=== PATIENT | male | born 1955 | race Caucasian/White ===

== ENCOUNTER → 2016-10-06 | Outpatient (CLI) | payer BC ==
--- NOTE | 2016-10-06 10:31 | US ---
EXAMINATION TYPE: US abdomen complete DATE OF EXAM: 10/06/2016 9:20 AM COMPARISON: NONE CLINICAL HISTORY: Abnormal liver function. EXAM MEASUREMENTS: Liver Length: 17.1 cm Gallbladder Wall: 0.3 cm CBD: 0.5 cm Spleen: 13.4 cm Right Kidney: 11.7 x 5.6 x 5.9 cm Left Kidney: 12.3 x 6.6 x 7.4 cm ANATOMY: TECHNOLOGIST IMPRESSION: 2.9 x 2.9 x 2.2 cm cyst with irregular borders in left lobe of liver; some attenuation indicative of fatty infiltrate Pancreas: Obscured by bowel gas Liver: Increased attenuation Gallbladder: Within normal limits Evidence for sonographic Cadena's sign: No CBD: Within normal limits Spleen: Within normal limits Right Kidney: No hydronephrosis or masses seen Left Kidney: No hydronephrosis or masses seen Upper IVC: Within normal limits Abd Aorta: Within normal limits There is an irregular bordered cyst with good through transmission and posterior wall enhancement wit hin the left lobe liver. Monitoring is recommended. IMPRESSION: 1. Irregular cyst within the liver. Monitoring is recommended. 2. Abdomen ultrasound is otherwise unremarkable.
== END | disposition home or self-care (01) ==
LOC: RADUSWWP 08:43
PROVIDERS: ATTEND Internal Medicine
DX: K76.89 Other specified diseases of liver (principal)
CPT/HCPCS: 76700

== ENCOUNTER → 2017-01-26 | Outpatient (CLI) | payer BC ==
--- NOTE | 2017-01-26 09:01 | US ---
EXAMINATION TYPE: US abdomen limited DATE OF EXAM: 01/26/2017 8:45 AM COMPARISON: US 2017 CLINICAL HISTORY: K76.89 Liver Cysts. EXAM MEASUREMENTS: Liver Length: 11.6 cm Gallbladder Wall: 0.2 cm CBD: 0.4 cm Right Kidney: 11.3 x 6.7 x 5.3 cm Pancreas: limitedly seen due to overlying bowel gas Liver: Cyst seen in left lobe = 1.7 x 1.8 x 2.6cm; heterogeneous appearance Gallbladder: wnl Evidence for sonographic Cadena's sign: No CBD: wnl Right Kidney: wnl IMPRESSION: 1. Probable fatty infiltration. 2. Left lobe hepatic cyst
== END | disposition home or self-care (01) ==
LOC: RADUSWWP 08:15
DX: K76.89 Other specified diseases of liver (principal)
CPT/HCPCS: 76705

== ENCOUNTER → 2017-05-22 | Outpatient (CLI) | payer BC ==
[2017-05-22 12:20] LABS: Bilirubin, Delta 0.2 mg/dL (0.0-0.2); Total Bilirubin 0.4 mg/dL (0.2-1.3); Total Protein 6.1 g/dL (6.3-8.2)
== END | disposition home or self-care (01) ==
LOC: LABWHC1 11:30
DX: R74.8 Abnormal levels of other serum enzymes (principal)
CPT/HCPCS: 36415; 80076

== ENCOUNTER → 2017-08-04 | Outpatient (CLI) | payer BC ==
--- NOTE | 2017-08-04 10:56 | US ---
EXAMINATION TYPE: US liver DATE OF EXAM: 08/04/2017 COMPARISON: Prior ultrasound January 2017. CLINICAL HISTORY: K76.0 Fatty liver. Follow up; hx liver cyst and fatty liver EXAM MEASUREMENTS: Liver Length: 16.7 cm cm Gallbladder Wall: 0.3 cm CHD: 0.5 cm Right Kidney: 10.7 x 5.9 x 6.1 cm Pancreas: Obscured by bowel gas Liver: left septated appearing cyst in left lobe = 2.8 x 2.9 x 1.9 cm. Does not appear echogenic co mpared to right kidney. Gallbladder: wnl Evidence for sonographic Cadena's sign: neg CBD: wnl Right Kidney: wnl Pancreas is suboptimally evaluated on images saved. In the liver there is redemonstration of 2.8 x 1. 9 cm elongated otherwise fairly simple appearing cyst though does have thin septation on image 24, th is is not significantly changed in appearance from prior study. No suspicious nodularity or thickened wall is present. Liver is overall slightly heterogeneously hyperechoic. No worrisome intrahepatic du ctal dilatation is seen. Evaluation for focal masses is noted suboptimal due to the heterogeneity. IMPRESSION: Probable fatty infiltration of liver redemonstrated. There is stable 2.8 cm cyst or cysti c lesion in liver with thin septa identified on current study.
== END | disposition home or self-care (01) ==
LOC: RADUSWWP 10:13
DX: N28.1 Cyst of kidney, acquired (principal)
CPT/HCPCS: 76705

== ENCOUNTER → 2018-06-01 | Outpatient (CLI) | payer BC ==
[2018-06-01 16:52] LABS: Albumin 4.1 g/dL (3.5-5.0); Bilirubin, Delta 0.3 mg/dL (0.0-0.2); Bilirubin,Unconjugated 0.1 mg/dL (0.0-1.1); Total Bilirubin 0.4 mg/dL (0.2-1.3); Total Protein 6.5 g/dL (6.3-8.2)
== END | disposition home or self-care (01) ==
LOC: LABWHC1 16:15
DX: K76.0 Fatty (change of) liver, not elsewhere classified (principal)
CPT/HCPCS: 36415; 80076

== ENCOUNTER → 2018-08-17 | Outpatient (CLI) | payer BC ==
--- NOTE | 2018-08-17 16:39 | US ---
EXAMINATION TYPE: US liver DATE OF EXAM: 08/17/2018 COMPARISON: US 08/04/2017 CLINICAL HISTORY: K76.89 OTHER SPECIFIED DISEASE OF LIVER. EXAM MEASUREMENTS: Liver Length: 16.6 cm Gallbladder Wall: 0.2 cm CBD: 0.5 cm Right Kidney: 10.7 x 5.8 x 5.8 cm Pancreas: Obscured by bowel gas Liver: Heterogeneous, coarse echotexture There is a 2.3 x 3.0 cm cystlike structure within the tasha er. This previously measured 2.8 x 1.9 cm. This has irregular monahan with good through transmission. C omplex cyst should be considered. Follow-up is recommended. Gallbladder: wnl Evidence for sonographic Cadena's sign: No CBD: wnl as visualized, distal portion obscured by bowel gas Right Kidney: No hydronephrosis or masses seen IMPRESSION: 1. Changing Complex hepatic cyst. 2. Hepatic cyst is slightly enlarged from comparison study. Consider additional evaluation with contr ast MRI.
== END | disposition home or self-care (01) ==
LOC: RADUSWWP 09:31
DX: K76.89 Other specified diseases of liver (principal)
CPT/HCPCS: 76705

== ENCOUNTER → 2019-09-12 | Outpatient (CLI) | payer BC ==
[2019-09-12 12:12] LABS: Albumin 3.9 g/dL (3.5-5.0); Calcium 8.8 mg/dL (8.4-10.2); Potassium 4.3 mmol/L (3.5-5.1); Total Bilirubin 0.8 mg/dL (0.2-1.3); Total Protein 6.4 g/dL (6.3-8.2)
[2019-09-12 12:16] LABS: Basophils % (A) 0 %; Eosinophils # (A) 0.1 k/uL (0-0.7); Eosinophils % (A) 1 %; HCT 43.5 % (39.0-53.0); HGB 14.4 gm/dL (13.0-17.5); Lymphocytes # (A) 1.6 k/uL (1.0-4.8); Lymphocytes % (A) 24 %; MCH 28.2 pg (25.0-35.0); MCHC 33.2 g/dL (31.0-37.0); Mean Platelet Volume 8.6; Monocytes # (A) 0.5 k/uL (0-1.0); Monocytes % (A) 8 %; Neutrophils # (A) 4.2 k/uL (1.3-7.7); Neutrophils % (A) 65 %; Platelet Count 228 k/uL (150-450); RBC 5.12 m/uL (4.30-5.90); RDW 12.6 % (11.5-15.5); WBC 6.5 k/uL (3.8-10.6)
--- NOTE | 2019-09-12 13:50 | US ---
EXAMINATION TYPE: US liver DATE OF EXAM: 09/12/2019 COMPARISON: 08/17/2018 CLINICAL HISTORY: 64-year-old male K76.89 DISEASE OF LIVER. Follow up liver cyst TECHNIQUE: Multiple sonographic images of the right upper quadrant are obtained. FINDINGS: EXAM MEASUREMENTS: Liver Length: 17.2 cm Gallbladder Wall: 0.2 cm CBD: 0.4 cm Right Kidney: 10.2 x 5.7 x 5.5 cm Pancreas: visualized portions wnl, limited by overlying midline bowel gas Liver: Slightly heterogeneous echotexture, 2.1 x 2.9 x 3.2cm cyst left lobe (previously 3.0 x 2.3 cm ). As seen previously, there is wall irregularity. Gallbladder: 0.4cm echogenic focus, small calculus versus gallbladder wall polyp. Evidence for sonographic Cadena's sign: no CBD: visualized portions wnl, limited by overlying bowel gas Right Kidney: wnl IMPRESSION: 1. 3.2 x 2.1 cm slightly irregular cyst within the left liver lobe (versus 3.0 x 2.3 cm on 08/17/2018 and 2.9 x 1.9 cm on 08/04/2017). Overall indolent behavior suggests a benign etiology. 2. A 4 mm gallbladder wall polyp versus small gallstone.
== END | disposition home or self-care (01) ==
LOC: RADUSWWP 10:54
PROVIDERS: ATTEND Internal Medicine Gastroenterology
DX: K76.89 Other specified diseases of liver (principal); K76.0 Fatty (change of) liver, not elsewhere classified
CPT/HCPCS: 76705; 80053; 85025

== ENCOUNTER → 2021-10-25 | Outpatient (CLI) | payer MEDICARE ==
--- NOTE | 2021-10-25 13:27 | US ---
EXAMINATION TYPE: US carotid duplex BILAT DATE OF EXAM: 10/25/2021 COMPARISON: NONE CLINICAL HISTORY: [id number]. EXAM MEASUREMENTS: RIGHT: Peak Systolic Velocity (PSV) cm/sec ----- Right CCA: 57.2 ----- Right ICA: 73.8 ----- Right ECA: 69.4 ICA/CCA ratio: 1.3 RIGHT: End Diastole cm/sec ----- Right CCA: 16.2 ----- Right ICA: 34.5 ----- Right ECA: 14.5 LEFT: Peak Systolic Velocity (PSV) cm/sec ----- Left CCA: 64.2 ----- Left ICA: 86.4 ----- Left ECA: 65.2 ICA/CCA ratio: 1.3 LEFT: End Diastole cm/sec ----- Left CCA: 20.6 ----- Left ICA: 42.0 ----- Left ECA: 16.8 VERTEBRALS (direction of flow): Right Vertebral: Antegrade Left Vertebral: Antegrade Rhythm: Normal Minimal atherosclerotic changes with no significant velocity increases. IMPRESSION: No evidence for hemodynamically significant stenosis. Criteria for Assigning % of Stenosis / Diameter reduction (Estimation based on the indirect measurements of the internal carotid artery velocities (ICA PSV). 1. Normal (no stenosis)=ICA PSV < 125 cm/s: ratio < 2.0: ICA EDV<40 cm/s. 2. Less than 50% stenosis=ICA PSV < 125 cm/s: ratio < 2.0: ICA EDV<40 cm/s. 3. 50 to 69% stenosis=ICA PSV of 125 to 230 cm/s: ration 2.0 ? 4.0: ICA EDV 40-100 cm/s. 4. Greater than 70% stenosis to near occlusion= ICA PSV > 230 cm/s: ratio > 4.0: ICA EDV > 100 cm/s. 5. Near occlusion= ICA PSV velocities may be low or undetectable: variable ratio and ICA EDV. 6. Total occlusion=unable to detect flow.
--- NOTE | 2021-10-25 15:39 | ECHOF ---
Referral Reason:I10 hypertention MEASUREMENTS -------- HEIGHT: 180.3 cm WEIGHT: 102.1 kg BP: IVSd: 1.3 cm (0.6 - 1.1) LVIDd: 4.1 cm (3.9 - 5.3) LVPWd: 1.4 cm (0.6 - 1.1) IVSs: 1.9 cm LVIDs: 2.6 cm LVPWs: 1.9 cm LAESV Index (A-L): 16.02 ml/m Ao Diam: 4.2 cm (2.0 - 3.7) AV Cusp: 2.6 cm (1.5 - 2.6) LA Diam: 3.3 cm (2.7 - 3.8) MV EXCURSION: 18.742 mm (> 18.000) MV EF SLOPE: 91 mm/s (70 - 150) EPSS: 3.0 cm MV E Luis: 0.71 m/s MV DecT: 178 ms MV A Luis: 0.86 m/s MV E/A Ratio: 0.83 RAP: 5.00 mmHg RVSP: 22.84 mmHg FINDINGS -------- This was a technically good study. The left ventricular size is normal. There is mild concentric left ventricular hypertrophy. Overa ll left ventricular systolic function is normal with, an EF between 55 - 60 %. The diastolic fillin g pattern is normal for the age of the patient {E/E'}. The right ventricle is normal in size. The left atrial size is normal. The right atrial size is normal. The aortic valve is trileaflet and appears structurally normal. The mitral valve is normal. There is trace mitral regurgitation. The tricuspid valve appears structurally normal. Trace tricuspid regurgitation present. Right ange tricular systolic pressure is normal at < 35 mmHg. There is no pulmonic regurgitation present. The aortic root size is normal. Normal inferior vena cava with normal inspiratory collapse consistent with estimated right atrial pre ssure of 5 mmHg. There is no pericardial effusion. CONCLUSIONS -------- 1. The left ventricular size is normal. 2. There is mild concentric left ventricular hypertrophy. 3. Overall left ventricular systolic function is normal with, an EF between 55 - 60 %. 4. The diastolic filling pattern is normal for the age of the patient {E/E'} 5. There is trace mitral regurgitation. 6. Trace tricuspid regurgitation present. 7. There is no pericardial effusion. LOG HAUL OPERATOR: Alyssa Horne RDCS
--- NOTE | 2021-10-26 06:35 | CT ---
EXAMINATION TYPE: CT heart w calcium score DATE OF EXAM: 10/25/2021 COMPARISON: Chest x-ray September 02, 2017 HISTORY: Screening for cardiovascular disorder. 213.9 CT DLP: 118.7 mGycm Automated exposure control for dose reduction was used. CT CALCIUM SCORING Coronary calcium is a marker for plaque (fatty deposits) in a blood vessel or atherosclerosis (harden ing of the arteries). The presence and amount of calcium detected in a coronary artery by the CT sca n, indicates the presence and amount of atherosclerotic plaque. These calcium deposits appear years before the development of heart disease symptoms such as chest pain and shortness of breath. A calcium score is computed for each of the coronary arteries based upon the volume and density of th e calcium deposits. This can be referred to as your calcified plaque burden. It does not correspond directly to the percentage of narrowing in the artery but does correlate with the severity of the un derlying coronary atherosclerosis. PROCEDURE TECHNIQUE - Prospective Gating was used. Slice thickness: 3mm. Density threshold (HU): 130, Pixel threshold: 3, Algorithm: discrete. RESULTS Region: LM Calcium Score ([place]): 0 Region: RCA Calcium Score ([place]): 0 Region: LAD Calcium Score ([place]): 0 Region: CX Calcium Score ([place]): 0 Region: PDA Calcium Score ([place]): 0 TOTAL CALCIUM SCORE: 0 Persistent elevated left hemidiaphragm. Mild anterior bibasilar linear scarring and/or atelectasis is present. There is mild underlying emphysematous change. Left hepatic lobe has 2.7 cm low dense lesio n redemonstrated consistent with benign thin-walled cyst correlating with 2019 liver ultrasound. IMPRESSION: Calcium Score: 0 Implication: No identifiable plaque. Risk of Coronary Artery Disease: Very low, generally less than 5%. CALCIUM SCORE IMPLICATION RISK OF C ORONARY ARTERY DISEASE 0 No identifiable plaque Very low, generally less than 5% 1-10 Minimal identifiable plaque Very unlikely, less than 10% 11-100 Definite, at least mild atherosclerotic plaque Mild or m inimal coronary narrowings likely 101-400 Definite, at least moderate atherosclerotic plaque Mild coronary ar ursula disease highly likely, significant narrowing possible 401 or Higher Extensive atherosclerotic plaque High lik elihood of at least one significant coronary narrowing
== END | disposition home or self-care (01) ==
LOC: RADUSWWP 12:47
PROVIDERS: ATTEND Internal Medicine
DX: I65.23 Occlusion and stenosis of bilateral carotid arteries (principal); I10 Essential (primary) hypertension; Z82.49 Family history of ischemic heart disease and other diseases of the circulatory system
CPT/HCPCS: 75571; 93306; 93880

== ENCOUNTER → 2021-11-07 | Outpatient (CLI) | payer MEDICARE ==
[2021-11-07 15:05] LABS: African American GFR (CKD) >90 (>60 ml/min/1.73 sqM); Blood Urea Nitrogen 21 mg/dL (9-20); Non-African American GFR(CKD) 79 (>60 ml/min/1.73 sqM)
--- NOTE | 2021-11-08 10:36 | CT ---
EXAMINATION TYPE: CT urogram wo/w con DATE OF EXAM: 11/07/2021 INDICATION: Hematuria CT DLP: 3876 mGy.cm Automated Exposure Control for Dose Reduction was Utilized. TECHNIQUE AND CONTRAST: Multiphasic multiplanar CT scan of the abdomen and pelvis is performed before and after IV contrast a dministration with delayed images as per CT urogram protocol, patient injected with 100 mL of Isovue 300. 3-D reconstructed images were performed and reviewed. COMPARISON: No previous CT scan is available for comparison. FINDINGS: Enlarged heterogeneous prostate measuring 5.4 x 5.3 x 5.9 cm. It demonstrates calcifications within, with surrounding fat stranding. Please correlate with PSA level. It indents and elevates the urinary bladder base. Slightly larger right seminal vesicles. No definite radiodense urinary calculi. No hydr oureter or hydronephrosis. Mild bilateral perinephric fat stranding, nonspecific. Unremarkable kidney s otherwise with no definite renal lesion. Minimal wall thickening of the most inferior aspects of the ureters, possibly reactive to the enlarge ment prostate. Otherwise unremarkable ureters with no definite filling defects within the renal colle cting system or the opacified ureters. Mild wall thickening of the urinary bladder yet it is not comp letely distended. No gross urinary bladder lesion. Scattered hepatic cysts measuring up to 3 cm in the left hepatic lobe, otherwise unremarkable liver. Unremarkable gallbladder, spleen, pancreas and adrenals. Minimal scattered arterial atherosclerotic c alcifications. Unremarkable stomach and duodenum. Abnormal wall thickening of the terminal ileum to t he ileocecal junction with fatty infiltration, possibly related to chronic inflammatory changes howev er underlying lesion cannot be excluded. Scattered uncomplicated colonic diverticulosis. 9 mm appendicolith within the appendix without eviden ce of acute appendicitis. Bilateral fat-containing inguinal hernias. Subcentimeter bilateral inguinal , external iliac, mesenteric and retroperitoneal lymph nodes, nonspecific. No pathologically enlarged lymph nodes or sizable ascites. Bilateral basal subsegmental pulmonary atelectasis. 12 mm right ante rior basal pleural calcification. Bilateral L4-5 and L5-S1 facet osteoarthropathy. No aggressive bone lesion. IMPRESSION: Enlarged heterogeneous prostate with surrounding fat stranding as described above. Please correlate w ith PSA level. Slightly thickened urinary bladder wall yet not completely distended. Minimal thickeni ng of the most inferior aspects of the ureters, possibly reactive to the enlarged prostate. Otherwise no definite renal, ureteric or urinary bladder lesion identified. Other incidental findings as detai led above.
== END | disposition home or self-care (01) ==
LOC: RADCTMAIN 14:18
PROVIDERS: ATTEND Internal Medicine
DX: R31.9 Hematuria, unspecified (principal)
CPT/HCPCS: 82565; 84520; 74178; 36415; 74400; Q9967

== ENCOUNTER → 2023-11-06 | Outpatient (CLI) | payer MEDICARE ==
[2023-11-06 09:05] LABS: African American GFR (CKD) 79 (>60 ml/min/1.73 sqM); Blood Urea Nitrogen 21 mg/dL (9-20); Non-African American GFR(CKD) 69 (>60 ml/min/1.73 sqM)
--- NOTE | 2023-11-06 12:17 | CT ---
EXAMINATION: CT UROGRAM ABDOMEN AND PELVIS WITHOUT AND WITH IV CONTRAST DATE OF EXAMINATION: 11/06/2023. COMPARISON: 11/07/2021. INDICATION: Enlarged prostate for 3 years. PROCEDURE: Axial CT of the abdomen and pelvis was performed without and with contrast and sagittal and coronal reformatted images were performed. CT dose lowering techniques were used, to include: aut omated exposure control, adjustment for patient size, and/or use of iterative reconstruction. Maximum intensity projection reformats were also performed. 100 mL of Isovue-300 was given intravenously. FINDINGS: LOWER CHEST : The visualized lung bases are clear. There are no pleural or pericardial effusions. ABDOMEN: Liver and Biliary system: There is a 2.8 cm cyst within the left lobe of liver. No suspicious liver lesions are otherwise seen. Adrenal glands: Normal. Kidneys and ureters: There is a 2 mm nonobstructing stone in the interpolar region of the left kidney . The kidneys and ureters otherwise appear unremarkable. Spleen: Normal. Pancreas: Normal. Gallbladder: Normal. Lymph nodes, Peritoneum and mesentery: There is no mesenteric or retroperitoneal lymphadenopathy. Gastrointestinal tract: There are no dilated loops of bowel or free intraperitoneal air. The appe ndix is normal. Aorta/IVC: No aortic aneurysm. IVC normal. Abdominal wall: Normal. PELVIS: Fluid: There is no free fluid in the pelvis. Lymph Nodes: There is no pelvic or inguinal lymphadenopathy.. Urinary bladder: The prostate is significantly enlarged indenting the base of the bladder. No suspic ious bladder lesions are otherwise seen. BONES: There are no osseous destructive lesions.. ADDITIONAL SIGNIFICANT FINDINGS: None. IMPRESSION: 1. Small nonobstructing left renal stone. 2. No suspicious renal, urinary tract or bladder lesions identified. 3. Markedly enlarged prostate indenting the base of the bladder. 4. No acute findings.
== END | disposition home or self-care (01) ==
LOC: RADCTMAIN 08:27
PROVIDERS: ATTEND Internal Medicine
DX: N32.89 Other specified disorders of bladder (principal); N20.0 Calculus of kidney; N40.0 Benign prostatic hyperplasia without lower urinary tract symptoms
CPT/HCPCS: 82565; 84520; 74178; 74400; Q9967

== ENCOUNTER 2024-12-16 07:18 | Inpatient (IN) | payer MEDICARE ==
[2024-12-16 07:46] LABS: Basophils % (A) 0 %; Eosinophils # (A) 0.2 k/uL (0-0.7); Eosinophils % (A) 1 %; HCT 43.9 % (39.0-53.0); HGB 14.4 gm/dL (13.0-17.5); Lymphocytes # (A) 1.3 k/uL (1.0-4.8); Lymphocytes % (A) 7 %; MCH 28.4 pg (25.0-35.0); MCHC 32.9 g/dL (31.0-37.0); MCV 86.3 fL (80.0-100.0); Mean Platelet Volume 8.4; Monocytes # (A) 1.1 k/uL (0-1.0); Monocytes % (A) 6 %; Neutrophils # (A) 15.2 k/uL (1.3-7.7); Neutrophils % (A) 84 %; Platelet Count 234 k/uL (150-450); RBC 5.09 m/uL (4.30-5.90); RDW 12.4 % (11.5-15.5)
[2024-12-16 07:49] LABS: Amorphous Sediment,Urine Occasional /hpf; Appearance,Urine Cloudy (Clear); Bilirubin,Urine Negative (Negative); Blood,Urine Negative (Negative); Color,Urine Light Yellow; Glucose,Urine (UA) Negative (Negative); Ketones,Urine Negative (Negative); Leukocyte Esterase,Urine Negative (Negative); Mucus,Urine Rare /hpf; Nitrite,Urine Negative (Negative); PH, Urine 7.5 (5.0-8.0); Protein,Urine Trace (Negative); RBC,Urine 3 /hpf (0-5); Urobilinogen,Urine <2.0 mg/dL (<2.0); WBC,Urine <1 /hpf (0-5)
[2024-12-16 08:02] LABS: ALT 19 U/L (4-49); AST 26 U/L (17-59); African American GFR (CKD) 86 (>60 ml/min/1.73 sqM); Albumin 4.2 g/dL (3.5-5.0); Alkaline Phosphatase 79 U/L (38-126); Amylase 55 U/L (30-110); Anion Gap 9 mmol/L; Blood Urea Nitrogen 22 mg/dL (9-20); Calcium 8.9 mg/dL (8.4-10.2); Carbon Dioxide 27 mmol/L (22-30); Chloride 102 mmol/L (98-107); Glucose 122 mg/dL (74-99); Lipase 62 U/L (23-300); Non-African American GFR(CKD) 74 (>60 ml/min/1.73 sqM); Potassium 4.2 mmol/L (3.5-5.1); Sodium 138 mmol/L (137-145); Total Protein 6.7 g/dL (6.3-8.2)
--- NOTE | 2024-12-16 09:24 | ED ---
Abdominal Pain HPI - General Chief Complaint: Abdominal Pain Stated Complaint: right lower abdominal pain Time Seen by Provider: 12/16/24 09:23 Source: patient, RN notes reviewed Mode of arrival: ambulatory Limitations: no limitations - History of Present Illness Initial Comments: 69-year-old male with a PMHX of HTN and HLD presented the ER for evaluation of abdominal pain. He states for the past couple of days he has been having in achy sore right lower quadrant abdominal pain. He states pain is exacerbated by palpation and getting up out of chair. He does report he did not have a bowel movement since Thursday but states last night he took 2 Dulcolax tablets and had a bowel movement prior to rooming the emergency department. He states it was formed stool with no bright red blood or melena. He denies any nausea or vomiting. He does report chills last night with no reported fevers. He has not taken anything for pain at this time. Currently rating his pain a 6 out of 10. No history of ulcerative colitis, Crohn's disease or previous bowel surgeries. Denies any urinary complaints, chest pain, shortness of breath, dizziness, l ightheadedness or other complaints. - Related Data Home Medications Medication Instructions Recorded Confirmed Ashwagandha Root Extract 300 mg PO DAILY 12/16/24 12/16/24 [Ashwagandha] Atorvastatin [Lipitor] 20 mg PO DAILY 12/16/24 12/16/24 Cholecalciferol (Vitamin D3) 50 mcg PO DAILY 12/16/24 12/16/24 [Vitamin D3 (50 Mcg = 2000 Iu)] Losartan [Cozaar] 50 mg PO DAILY 12/16/24 12/16/24 Magnesium 250 mg PO DAILY 12/16/24 12/16/24 [place]-3/Dha/Epa/Fish Oil [Fish Oil 1 cap PO DAILY 12/16/24 12/16/24 1,000 mg Softgel] Tamsulosin [Flomax] 0.4 mg PO DAILY 12/16/24 12/16/24 Ubidecarenone [Coenzyme Q10] 100 mg PO DAILY 12/16/24 12/16/24 Vit C/E/Zn/Coppr/Lutein/Zeaxan 1 cap PO DAILY 12/16/24 12/16/24 [Preservision Areds 2 Softgel] Allergies Allergy/AdvReac Type Severity Reaction Status Date / Time No Known Allergies Allergy Verified 12/16/24 11:23 Review of Systems ROS Statement: Those systems with pertinent positive or pertinent negative responses have been documented in the HPI. ROS Other: All systems not noted in ROS Statement are negative. Past Medical History Past Medical History: Hyperlipidemia, Hypertension History of Any Multi-Drug Resistant Organisms: None Reported Past Surgical History: No Surgical Hx Reported Past Psychological History: No Psychological Hx Reported Smoking Status: Never smoker Past Alcohol Use History: Rare Past Drug Use History: Marijuana General Exam Limitations: no limitations General appearance: alert, in no apparent distress Respiratory exam: Present: normal lung sounds bilaterally. Absent: respiratory distress, wheezes, rales, rhonchi, stridor Cardiovascular Exam: Present: regular rate, normal rhythm, normal heart sounds. Absent: systolic murmur, diastolic murmur, rubs, gallop, clicks GI/Abdominal exam: Present: soft, tenderness (RLQ), normal bowel sounds Neurological exam: Present: alert, oriented X3, CN II-XII intact Skin exam: Present: warm, dry, intact, normal color. Absent: rash Course Vital Signs 12/16/24 12/16/24 07:23 10:27 Temperature 97.9 F Pulse Rate 96 87 Respiratory 20 18 Rate Blood Pressure 147/95 149/92 O2 Sat by Pulse 96 98 Oximetry - Reevaluation(s) Reevaluation #1: 12/16/24 11:[address] Rogers, regional agronomist general surgery for admission. Medical Decision Making - Medical Decision Making Was pt. sent in by a medical professional or institution (, PA, DESK EDITOR, urgent care, hospital, or skilled nursing...) When possible be specific @ -No Did you speak to anyone other than the patient for history (EMS, parent, family, police, friend...)? What history was obtained from this source @ -No Did you review nursing and triage notes (agree or disagree)? Why? @ -I reviewed and agree with nursing and triage notes Were old charts reviewed (outside hosp., previous admission, EMS record, old EKG, old radiological studies, urgent care reports/EKG's, skilled nursing records)? Report findings @ -No old charts were reviewed Differential Diagnosis (chest pain, altered mental status, abdominal pain women, abdominal pain men, vaginal bleeding, weakness, fever, dyspnea, syncope, headac he, dizziness, GI bleed, back pain, seizure, CVA, palpatations, mental health, musculoskeletal)? @ -Differential Abdominal Pain Men: Appendicitis, cholecystitis, diverticulosis, ischemic bowel, pancreatitis, hepatitis, UTI, gastroenteritis, AAA, incarcerated hernia, bowel obstruction, constipation, inflammatory bowel, hepatitis, peptic ulcer disease, splenic infarction, perforated viscus, testic ular torsion, this is not meant to be an all-inclusive list EKG interpreted by me (3pts min.). @ -None done X-rays interpreted by me (1pt min.). @ -None done CT interpreted by me (1pt min.). @ -CT abdomen pelvis showing an uncomplicated acute appendicitis with severe surrounding inflammatory changes. No free air. Stable 2.8 cm thin-walled cyst of the left hepatic lobe. U/S interpreted by me (1pt. min.). @ -None done What testing was considered but not performed or refused? (CT, X-rays, U/S, labs)? Why? @ -None What meds were considered but not given or refused? Why? @ -None Did you discuss the management of the patient with other professionals (professionals i.e. , PA, DESK EDITOR, lab, RT, psych nurse, elementary school social worker, announcer, teacher, combat systems officer, case finishing machine adjuster)? Give summary @ -Yes, case discussed with on-call general surgery, Dr. Rogers, who accepts admission. He will take patient to OR. Was smoking cessation discussed for >3mins.? @ -No Was critical care preformed (if so, how long)? @ -No Were there social determinants of health that impacted care today? How? (Homelessness, low income, unemployed, alcoholism, drug addiction, transportation, low edu. Level, literacy, decrease access to med. care, [facility], rehab)? @ -No Was there de-escalation of care discussed even if they declined (Discuss DNR or withdrawal of care, Hospice)? DNR status @ -No What co-morbidities impacted this encounter? (DM, HTN, Smoking, COPD, CAD, Cancer, CVA, ARF, Chemo, Hep., AIDS, mental health diagnosis, sleep apnea, morbid obesity)? @ -Hypertension, hyperlipidemia, BPH Was patient admitted / discharged? Hospital course, mention meds given and route, prescriptions, significant lab abnormalities, going to OR and other pertinent info. @ -Admitted. 69-year-old male presented to ER for evaluation of right lower quadrant abdominal pain. Upon rooming, history and physical exam completed. Vitals within acceptable limits. There is focal exquisite tenderness to the right lower quadrant upon palpation. Normal bowel sounds without rebound or guarding. Laboratory studies showed a leukocytosis of 18.0 with a left shift. Lactic 1.3. Urinalysis no concern of infection. CT abdomen pelvis showing acute uncomplicated appendicitis. Case was discussed with on-call general surgery, Dr. Rogers, for admission. Patient received symptomatic control with IV fluids and Toradol. Patient started on IV Zosyn given leukocytosis, blood cultures obtained. NPO diet. Patient admitted in stable condition for further treatment. Patient agreeable. Case discussed with ED attending, Dr. Rondon. Undiagnosed new problem with uncertain prognosis? @ -No Drug Therapy requiring intensive monitoring for toxicity (Heparin, Nitro, Insulin, Cardizem)? @ -No Were any procedures done? @ -No Diagnosis/symptom? @ -Appendicitis Acute, or Chronic, or Acute on Chronic? @ -Acute Uncomplicated (without systemic symptoms) or Complicated (systemic symptoms)? @ -Complicated Side effects of treatment? @ -No Exacerbation, Progression, or Severe Exacerbation? @ -No Poses a threat to life or bodily function? How? (Chest pain, USA, PA, pneumonia, PE, COPD, DKA, ARF, appy, cholecystitis, CVA, Diverticulitis, Homicidal, Suicidal, threat to staff... and all critical care pts) @ -Yes, appendicitis can lead to sepsis and/or bowel perforation. - Lab Data Result diagrams: 12/16/24 07:40 12/16/24 07:40 Lab Results 12/16/24 12/16/24 12/16/24 Range/Units 07:31 07:40 07:40 WBC 18.0 H (3.8-10.6) k/uL RBC 5.09 (4.30-5.90) m/uL Hgb 14.4 (13.0-17.5) gm/dL Hct 43.9 (39.0-53.0) % MCV 86.3 (80.0-100.0) fL MCH 28.4 (25.0-35.0) pg MCHC 32.9 (31.0-37.0) g/dL RDW 12.4 (11.5-15.5) % Plt Count 234 (150-450) k/uL MPV 8.4 Neutrophils % 84 % Lymphocytes % 7 % Monocytes % 6 % Eosinophils % 1 % Basophils % 0 % Neutrophils # 15.2 H (1.3-7.7) k/uL Lymphocytes # 1.3 (1.0-4.8) k/uL Monocytes # 1.1 H (0-1.0) k/uL Eosinophils # 0.2 (0-0.7) k/uL Basophils # 0.0 (0-0.2) k/uL Sodium (137-145) mmol/L Potassium (3.5-5.1) mmol/L Chloride (98-107) mmol/L Carbon Dioxide (22-30) mmol/L Anion Gap mmol/L BUN (9-20) mg/dL Creatinine (0.66-1.25) mg/dL Est GFR (CKD-EPI)AfAm (>60 ml/min/1.73 sqM) Est GFR (CKD-EPI)NonAf (>60 ml/min/1.73 sqM) Glucose (74-99) mg/dL Plasma Lactic Acid Sherif 1.3 (0.7-2.0) mmol/L Calcium (8.4-10.2) mg/dL Total Bilirubin (0.2-1.3) mg/dL AST (17-59) U/L ALT (4-49) U/L Alkaline Phosphatase (38-126) U/L Total Protein (6.3-8.2) g/dL Albumin (3.5-5.0) g/dL Amylase (30-110) U/L Lipase (23-300) U/L Urine Color Light Yellow Urine Appearance Cloudy (Clear) Urine pH 7.5 (5.0-8.0) Ur Specific Rev[place] 1.020 (1.001-1.035) Urine Protein Trace H (Negative) Urine Glucose (UA) Negative (Negative) Urine Ketones Negative (Negative) Urine Blood Negative (Negative) Urine Nitrite Negative (Negative) Urine Bilirubin Negative (Negative) Urine Urobilinogen <2.0 (<2.0) mg/dL Ur Leukocyte Esterase Negative (Negative) Urine RBC 3 (0-5) /hpf Urine WBC <1 (0-5) /hpf Amorphous Sediment Occasional H (None) /hpf Urine Mucus Rare H (None) /hpf 12/16/24 Range/Units 07:40 WBC (3.8-10.6) k/uL RBC (4.30-5.90) m/uL Hgb (13.0-17.5) gm/dL Hct (39.0-53.0) % MCV (80.0-100.0) fL MCH (25.0-35.0) pg MCHC (31.0-37.0) g/dL RDW (11.5-15.5) % Plt Count (150-450) k/uL MPV Neutrophils % % Lymphocytes % % Monocytes % % Eosinophils % % Basophils % % Neutrophils # (1.3-7.7) k/uL Lymphocytes # (1.0-4.8) k/uL Monocytes # (0-1.0) k/uL Eosinophils # (0-0.7) k/uL Basophils # (0-0.2) k/uL Sodium 138 (137-145) mmol/L Potassium 4.2 (3.5-5.1) mmol/L Chloride 102 (98-107) mmol/L Carbon Dioxide 27 (22-30) mmol/L Anion Gap 9 mmol/L BUN 22 H (9-20) mg/dL Creatinine 1.03 (0.66-1.25) mg/dL Est GFR (CKD-EPI)AfAm 86 (>60 ml/min/1.73 sqM) Est GFR (CKD-EPI)NonAf 74 (>60 ml/min/1.73 sqM) Glucose 122 H (74-99) mg/dL Plasma Lactic Acid Sherif (0.7-2.0) mmol/L Calcium 8.9 (8.4-10.2) mg/dL Total Bilirubin 1.0 (0.2-1.3) mg/dL AST 26 (17-59) U/L ALT 19 (4-49) U/L Alkaline Phosphatase 79 (38-126) U/L Total Protein 6.7 (6.3-8.2) g/dL Albumin 4.2 (3.5-5.0) g/dL Amylase 55 (30-110) U/L Lipase 62 (23-300) U/L Urine Color Urine Appearance (Clear) Urine pH (5.0-8.0) Ur Specific [place] (1.001-1.035) Urine Protein (Negative) Urine Glucose (UA) (Negative) Urine Ketones (Negative) Urine Blood (Negative) Urine Nitrite (Negative) Urine Bilirubin (Negative) Urine Urobilinogen (<2.0) mg/dL Ur Leukocyte Esterase (Negative) Urine RBC (0-5) /hpf Urine WBC (0-5) /hpf Amorphous Sediment (None) /hpf Urine Mucus (None) /hpf - Radiology Data Radiology results: report reviewed, image reviewed Disposition Clinical Impression: Acute appendicitis Disposition: ADMITTED IP TO THIS [facility] Condition: Stable Referrals: Augustin Sandoval MD [Primary Care Provider] - 1-2 days Time of Disposition: 11:06
[2024-12-16] MEDS: SODIUM CHLORIDE 0.9% 1,000 ML IV ONE (09:38)
[2024-12-16] MEDS: KETOROLAC 15 MG/ML 1 ML VIAL IVP STA (09:54)
--- NOTE | 2024-12-16 10:42 | CT ---
EXAMINATION TYPE: CT abdomen pelvis w con DATE OF EXAM: 12/16/2024 COMPARISON: CT urogram November 06, 2023 CLINICAL INDICATION: Male, 69 years old with history of RLQ abd pain, RLQ pain, TECHNIQUE: CT scan of the abdomen and pelvis is performed with IV Contrast, patient injected with 100 mL of Isov ue 300., (none if empty) Oral contrast used: without Oral Contrast (none if empty) CT DLP: 1570.5 mGycm, Automated exposure control for dose reduction was used. FINDINGS: LUNG BASES: Mild bibasilar linear scarring and/or atelectasis. LIVER/GB: There is stable 2.8 cm thin-walled cyst in the left hepatic lobe and nearby subcentimeter h ypodense lesion that is too small to further characterize. PANCREAS: No significant abnormality is seen. SPLEEN: No significant abnormality is seen. ADRENALS: No significant abnormality is seen. KIDNEYS: No significant abnormality is seen. BOWEL: Appendicolith in the appendix is redemonstrated near the base. There is now new dilatation of the appendix up to 1.5 cm with significant surrounding ill-defined fluid and fat stranding. No defini tive well-formed fluid collection or abscess. No free air. PROSTATE/SEMINAL VESICLES: Enlarged prostate consistent with BPH is redemonstrated. LYMPH NODES: No greater than 1cm abdominal or pelvic lymph nodes are appreciated. OSSEOUS STRUCTURES: No significant abnormality is seen. OTHER: No significant additional abnormality is seen. IMPRESSION: CT findings consistent with uncomplicated acute appendicitis with severe surrounding infl ammatory change noted. Critical results communicated to ordering emergency room physician psychologist research assistant by telephone at time of dictation. [facility], , 12/16/2024 10:40 AM
[2024-12-16] MEDS: PIPERACILLIN-TAZOBACTAM 3.375 GM in SODIUM CHLORIDE 0.9% 100 ML IVPB STA (11:29)
[2024-12-16] MEDS ORDERED: NALOXONE 0.4 MG/ML 1 ML VIAL IV PRN (11:32)
[2024-12-16] MEDS ORDERED: HYDROmorphone 1 MG/ML 1 ML SYRINGE IVP PRN (11:32)
[2024-12-16] MEDS: IV FLUID CONTINUATION 1,000 ML IV ONE (12:12)
[2024-12-16] MEDS: ONDANSETRON 4 MG/2 ML VIAL IVP PRN (12:23)
[2024-12-16] MEDS: ACETAMINOPHEN TAB 500 MG TAB PO STA (12:24)
[2024-12-16] MEDS: TAMSULOSIN 0.4 MG CAP.ER.24H PO STA (12:24)
[2024-12-16] MEDS: HEPARIN SODIUM,PORCINE 5,000 UNIT/ML 1 ML VIAL SQ STA (12:29)
[2024-12-16] MEDS ORDERED: SUCCINYLCHOLINE CHLORIDE 200 MG/10 ML VIAL IV ONE (12:41)
[2024-12-16] MEDS ORDERED: PHENYLEPHRINE 10 MG/ML VIAL ONE (12:41)
[2024-12-16] MEDS ORDERED: MIDAZOLAM 2 MG/2 ML VIAL ONE (12:41)
[2024-12-16] MEDS ORDERED: LIDOCAINE 1% INJ 10MG/ML (20 ML MDV) ONE (12:41)
[2024-12-16] MEDS ORDERED: NEOSTIGMINE 1 MG/ML 10 ML VIAL ONE (12:41)
[2024-12-16] MEDS ORDERED: ROCURONIUM 10 MG/ML (5 ML VIAL) IV ONE (12:41)
[2024-12-16] MEDS ORDERED: PROPOFOL 10 MG/ML 20 ML VIAL IV ONE (12:41)
[2024-12-16] MEDS ORDERED: fentaNYL (PF) 50 MCG/ML 2 ML AMP ONE (12:41)
[2024-12-16] MEDS ORDERED: GLYCOPYRROLATE 0.2 MG/ML 2 ML VIAL ONE (12:41)
--- NOTE | 2024-12-16 12:46 | P.GSHP ---
History of Present Illness H&P Date: 12/16/24 Chief Complaint: Acute appendicitis 69-year-old male presents with 2 to 3-day history of right lower quadrant abdominal pain. Pain became more progressive. Patient was having some constipation and kept thinking once he had a bowel movement that his pain would go away. Unfortunate last night the pain was unbearable and he came to the hospital this morning for that reason. Denies fevers. Some nausea. Appetite is diminished. No urinary complaints. White blood cell count 18. No history of similar events. CAT scan was obtained showing acute appendicitis with appen dicolith. Degree of inflammatory changes fairly impressive with likely some fluid around the appendix suggesting rupture is possible. Pain maintained on the right-hand side. - Review of Systems Comment: The patient denies any acute changes in vision or hearing, no dysphagia or odynophagia, no chest pain or shortness of breath, no dysuria or hematuria, no headache, no runny nose, no rectal bleeding or melena, no unexplained weight loss Past Medical History Past Medical History: Hyperlipidemia, Hypertension History of Any Multi-Drug Resistant Organisms: None Reported Past Surgical History: No Surgical Hx Reported Past Psychological History: No Psychological Hx Reported Smoking Status: Never smoker Past Alcohol Use History: Rare Past Drug Use History: Marijuana Medications and Allergies Home Medications Medication Instructions Recorded Confirmed Type Ashwagandha Root Extract 300 mg PO DAILY 12/16/24 12/16/24 History [Ashwagandha] Atorvastatin [Lipitor] 20 mg PO DAILY 12/16/24 12/16/24 History Cholecalciferol (Vitamin D3) 50 mcg PO DAILY 12/16/24 12/16/24 History [Vitamin D3 (50 Mcg = 2000 Iu)] Losartan [Cozaar] 50 mg PO DAILY 12/16/24 12/16/24 History Magnesium 250 mg PO DAILY 12/16/24 12/16/24 History [place]-3/Dha/Epa/Fish Oil [Fish Oil 1 cap PO DAILY 12/16/24 12/16/24 History 1,000 mg Softgel] Tamsulosin [Flomax] 0.4 mg PO DAILY 12/16/24 12/16/24 History Ubidecarenone [Coenzyme Q10] 100 mg PO DAILY 12/16/24 12/16/24 History Vit C/E/Zn/Coppr/Lutein/Zeaxan 1 cap PO DAILY 12/16/24 12/16/24 History [Preservision Areds 2 Softgel] Allergies Allergy/AdvReac Type Severity Reaction Status Date / Time No Known Allergies Allergy Verified 12/16/24 11:23 Surgical - Exam Vital Signs Temp Pulse Resp BP Pulse Ox 97.9 F 96 20 147/95 96 12/16/24 07:23 12/16/24 07:23 12/16/24 07:23 12/16/24 07:23 12/16/24 07:23 Physical exam: General: Well-developed, well-nourished HEENT: Normocephalic, sclerae nonicteric Abdomen: Mild distention, moderate right lower quadrant tenderness, no hernia Extremities: No edema Neuro: Alert and oriented Results - Labs 12/16/24 07:40 12/16/24 07:40 Abnormal Lab Results - Last 24 Hours (Table) 12/16/24 12/16/24 12/16/24 Range/Units 07:40 07:40 07:40 WBC 18.0 H (3.8-10.6) k/uL Neutrophils # 15.2 H (1.3-7.7) k/uL Monocytes # 1.1 H (0-1.0) k/uL BUN 22 H (9-20) mg/dL Glucose 122 H (74-99) mg/dL Urine Protein Trace H (Negative) Amorphous Sediment Occasional H (None) /hpf Urine Mucus Rare H (None) /hpf Diabetes panel 12/16/24 Range/Units 07:40 Sodium 138 (137-145) mmol/L Potassium 4.2 (3.5-5.1) mmol/L Chloride 102 (98-107) mmol/L Carbon Dioxide 27 (22-30) mmol/L BUN 22 H (9-20) mg/dL Creatinine 1.03 (0.66-1.25) mg/dL Glucose 122 H (74-99) mg/dL Calcium 8.9 (8.4-10.2) mg/dL AST 26 (17-59) U/L ALT 19 (4-49) U/L Alkaline Phosphatase 79 (38-126) U/L Total Protein 6.7 (6.3-8.2) g/dL Albumin 4.2 (3.5-5.0) g/dL Calcium panel 12/16/24 Range/Units 07:40 Calcium 8.9 (8.4-10.2) mg/dL Albumin 4.2 (3.5-5.0) g/dL Pituitary panel 12/16/24 Range/Units 07:40 Sodium 138 (137-145) mmol/L Potassium 4.2 (3.5-5.1) mmol/L Chloride 102 (98-107) mmol/L Carbon Dioxide 27 (22-30) mmol/L BUN 22 H (9-20) mg/dL Creatinine 1.03 (0.66-1.25) mg/dL Glucose 122 H (74-99) mg/dL Calcium 8.9 (8.4-10.2) mg/dL Adrenal panel 12/16/24 Range/Units 07:40 Sodium 138 (137-145) mmol/L Potassium 4.2 (3.5-5.1) mmol/L Chloride 102 (98-107) mmol/L Carbon Dioxide 27 (22-30) mmol/L BUN 22 H (9-20) mg/dL Creatinine 1.03 (0.66-1.25) mg/dL Glucose 122 H (74-99) mg/dL Calcium 8.9 (8.4-10.2) mg/dL Total Bilirubin 1.0 (0.2-1.3) mg/dL AST 26 (17-59) U/L ALT 19 (4-49) U/L Alkaline Phosphatase 79 (38-126) U/L Total Protein 6.7 (6.3-8.2) g/dL Albumin 4.2 (3.5-5.0) g/dL Assessment and Plan (1) Acute appendicitis Narrative/Plan: 69-year-old male with acute appendicitis with appendicolith. Options reviewed. Will proceed with laparoscopic, possible open appendectomy at this time. Risks of bleeding, infection, bladder or bowel and ureteral injury, conversion to an open procedure, possible need for bowel resection, leak, abscess, wound infection, hernia. Patient understands and wishes to proceed. Current Visit: Yes Status: Acute Code(s): K35.80 - UNSPECIFIED ACUTE APPENDICITIS SNOMED Code(s): 09475597
[2024-12-16] MEDS: BUPIVACAINE (PF) 0.25% 30 ML VIAL SQ ONE (13:04)
[2024-12-16] MEDS ORDERED: ONDANSETRON 4 MG/2 ML VIAL IVP PRN (14:08)
[2024-12-16] MEDS ORDERED: traMADol 50 MG TAB PO PRN (14:08)
[2024-12-16] MEDS ORDERED: ACETAMINOPHEN TAB 325 MG TAB PO PRN (14:08)
[2024-12-16] MEDS ORDERED: METOCLOPRAMIDE 5 MG/ML 2 ML VIAL IVP PRN (14:08)
--- NOTE | 2024-12-16 14:13 | P.OP ---
Date of Procedure: 12/16/24 Procedure(s) Performed: PREOPERATIVE DIAGNOSIS: Acute appendicitis POSTOPERATIVE DIAGNOSIS: Acute gangrenous ruptured appendicitis with localized peritonitis PROCEDURE: Laparoscopic appendectomy SURGEON: Sue EBL: 10 cc ANESTHESIA: General COMPLICATIONS: None OPERATIVE PROCEDURE: The patient was brought and placed on the operating table in the supine position. The patient was placed under general anesthesia. The abdomen was prepped and draped in the usual sterile fashion. A small horizontal supraumbilical incision was made. The fascia was retracted anteriorly with Ton forceps. The Veress needle was advanced into the peritoneal cavity. The saline drop test was normal. Insufflation took place to 15 mmHg. A 5 mm trocar was then placed. An additional 5 mm suprapubic trocar was placed under direct visualization as well as a 12 mm left lower quadrant trocar under direct visualization. The patient's adhesions between the sigmoid colon and the cecum/appendix were bluntly dissected. The patient's appendix was adherent to the right pelvic sidewall. This was able to be mobilized with blunt dissection and in doing so a purulent pocket was encountered and there was a small perforation of the appendix noted approximately 2 cm from the junction with the cecum. The patient's stone was palpated just proximal to this. The mesoappendix was divided using LigaSure. It was quite thick and edematous. The base of the appendix was then divided using a linear blue load stapler. The surgical site was inspected and no bleeding was seen. That area was thoroughly irrigated. A drain was brought into the abdominal cavity from the suprapubic incision site laying along the right gutter. This was sutured to the skin using a 3-0 silk stitch. The appendix was brought out of the peritoneal cavity through the left lower quadrant trocar site with an Endo Catch bag. The fascia at the 12 mm site was closed using a [] 0 Vicryl stitch. The skin at the remaining 2 sites was closed using 4-0 Monocryl sutures. Skin glue was then applied. DISPOSITION: Stable to recovery room
[2024-12-16] MEDS: KETOROLAC 15 MG/ML 1 ML VIAL IVP PRN (15:27)
[2024-12-16] MEDS: HYDROcodone/APAP 5-325MG 1 EACH TAB PO PRN (15:27)
[2024-12-16] MEDS: metroNIDAZOLE-NS PMX 500 MG in SALINE 1 100ML.BAG IVPB SCH (15:28)
[2024-12-16] MEDS: D5-0.45% NACL WITH KCL 20MEQ/L 1,000 ML IV SCH (17:54)
[2024-12-16] MEDS: SODIUM CHLORIDE 0.9% 1,000 ML IV SCH (17:59)
[2024-12-16] MEDS: HEPARIN SODIUM,PORCINE 5,000 UNIT/ML 1 ML VIAL SQ SCH (21:31)
[2024-12-16] MEDS: PIPERACILLIN-TAZOBACTAM 3.375 GM in SODIUM CHLORIDE 0.9% 100 ML IVPB SCH (21:32)
[2024-12-17 07:17] LABS: Basophils % (A) 0 %; Eosinophils % (A) 0 %; HGB 12.8 gm/dL (13.0-17.5); Lymphocytes # (A) 1.2 k/uL (1.0-4.8); Lymphocytes % (A) 11 %; MCHC 32.1 g/dL (31.0-37.0); MCV 87.2 fL (80.0-100.0); Mean Platelet Volume 8.3; Monocytes % (A) 9 %; Neutrophils # (A) 8.7 k/uL (1.3-7.7); Neutrophils % (A) 78 %; Platelet Count 190 k/uL (150-450); RBC 4.58 m/uL (4.30-5.90); RDW 12.8 % (11.5-15.5); WBC 11.2 k/uL (3.8-10.6)
[2024-12-17 07:43] LABS: ALT 13 U/L (4-49); AST 19 U/L (17-59); African American GFR (CKD) 71 (>60 ml/min/1.73 sqM); Albumin 3.1 g/dL (3.5-5.0); Albumin/Globulin Ratio 1.3; Alkaline Phosphatase 67 U/L (38-126); Anion Gap 8 mmol/L; Blood Urea Nitrogen 20 mg/dL (9-20); Calcium 8.3 mg/dL (8.4-10.2); Carbon Dioxide 28 mmol/L (22-30); Chloride 98 mmol/L (98-107); Globulin 2.3 g/dL; Glucose 109 mg/dL (74-99); Non-African American GFR(CKD) 62 (>60 ml/min/1.73 sqM); Sodium 134 mmol/L (137-145); Total Bilirubin 1.1 mg/dL (0.2-1.3); Total Protein 5.4 g/dL (6.3-8.2)
[2024-12-17] MEDS: MAGNESIUM OXIDE 400 MG TAB PO SCH (08:22)
[2024-12-17] MEDS: PANTOPRAZOLE 40 MG/10 ML VIAL IV SCH (08:22)
[2024-12-17] MEDS: LOSARTAN 50 MG TAB PO SCH (08:23)
[2024-12-17] MEDS: TAMSULOSIN 0.4 MG CAP.ER.24H PO SCH (08:23)
[2024-12-17] MEDS: ATORVASTATIN 20 MG TAB PO SCH (08:23)
[2024-12-17] MEDS: CHOLECALCIFEROL 25 MCG (1000 IU) TABLET PO SCH (08:23)
--- NOTE | 2024-12-17 09:38 | P.CONS ---
History of Present Illness - Reason for Consult Consult date: 12/16/24 Medical management Requesting physician: Bora Rogers - Chief Complaint Status post lap appendectomy - History of Present Illness HISTORY OF PRESENT ILLNESS: This is a 69-year-old male with a previous medical history significant for hypertension and hypertensive cardiovascular disease, mixed hyperlipidemia, enlarged prostate, history of erectile dysfunction, history of osteoarthritis, patient presented to the emergency department at [facility] because of right lower quadrant abdominal pain that was started 2 days ago and the patient stated that the pain was dull bed and he thought that he is having some issues with constipation, patient's pain got terribly bad to the degree that he ended up coming to the emergency department today because the pain was intolerable, was somewhat nauseated, patient underwent a CT scan of the abdomen pelvis that did show evidence of acute uncomplicated appendicitis, he was admitted under general surgery, he underwent laparoscopic appendectomy, and I was asked to see the patient for postoperative medical management. Patient is laying down in bed in no apparent distress, he denies any chest pain, shortness of breath, his pain is well-controlled, he was started on Zosyn as well as metronidazole, he will be admitted to the hospital for overnight, hopefully will get out of the hospital in the next 24 hours. REVIEW OF SYSTEMS: Constitutional: No documented fever, no chills, no night sweats. No weight c hange. No weakness, fatigue or lethargy. No daytime sleepiness. EENT: No headache. No blurred vision or double vision, no loss of vision. No loss of Hearing, no ringing in the ears, no dizziness. No nasal drainage or congestion. No epistaxis. No sore throat. Lungs: No shortness of breath, no cough, no sputum production. No wheezing. Reports dyspnea with activity. Cardiovascular: No chest pain, no lower extremity edema. No palpitations. No paroxysmal nocturnal dyspnea. No orthopnea. No lightheadedness or dizziness. No syncopal episodes. Abdominal: Reports abdominal pain. No nausea, vomiting. No diarrhea. Positive for constipation. No bloody or tarry stools reports loss of appetite. Genitourinary: No dysuria, increased frequency, urgency. No urinary retention. Musculoskeletal: No myalgias. No muscle weakness, no gait dysfunction, no frequent falls. No back pain. No neck pain. Integumentary: No wounds, no lesions. No rash or pruritus. No unusual bruising. No change in hair or nails. Neurologic: No aphasia. No facial droop. No change in mentation. No head injury. No headache. No paralysis. No paresthesia. Psychiatric: No depression. No anxiety. No mood swings. Endocrine: No abnormal blood sugars. No weight change. PAST MEDICAL HISTORY: Hypertension and hypertensive cardiovascular disease. Mixed hyperlipidemia. Enlarged prostate. Erectile dysfunction. Osteoarthritis. PAST SURGICAL HISTORY: Laparoscopic appendectomy 12/16/2024 Vasectomy 1989 SOCIAL HISTORY: Patient denies a history of smoking, he drinks occasionally, he denies any drug use or abuse, he lives with his . 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 FAMILY HISTORY: Father at the age of 90 from Parkinson and had history of hypertension, mother at the age of 99 from dementia patient has 4 brothers 1 with Crohn disease 1 with adrenal gland issue and recurrent Staphylococcus auris infections and the third 1 has a CVA in the last 1 with stroke as well, patient has 2 daughters alive and well. PHYSICAL EXAMINATION: General: 69-year-old gentleman lying down in bed in no distress. HEENT: Head is atraumatic, normocephalic, pupils were equal round reactive to light and recommendation, extraocular muscle movement were intact, sclera nonicteric, conjunctivae were pale, mucous membranes of the mouth are somewhat dry. Neck: Supple, no JVP, normal carotid upstroke bilaterally, no lymphadenopathy. Chest: Decreased breath sounds at the bases, few rhonchi, no expiratory wheezes, no chest wall tenderness, no intercostal retractions. Heart: First heart sound is normal, second heart sounds normal Abdomen: Soft, mild tenderness to the right lower quadrant,, mildly distended, positive bowel sounds laparoscopic sites appears to be clean, THELMA tube in place. Extremities: There is no edema no calf tenderness DP +2 bilaterally. Neurologic examination: Patient is awake alert and oriented x3, cranial nerves II-12 appear grossly intact, muscle power were 5 out of 5 in upper extremities and 5 out of 5 in bilateral lower extremities, deep tendon reflexes normal bilaterally. ASSESSMENT AND PLAN: 1. Postoperative day #0 status post laparoscopic appendectomy. Patient was instructed to use incentive spirometer to reduce the incidence of atelectasis and healthcare associated pneumonia, continue current pain management as outlined by general surgery, continue IV antibiotic in the form of Zosyn 3.375 g IV piggyback every 8 hours, continue metronidazole 500 mg a piggyback every 8 hours, patient was started on antiemetics as well as clear liquid diet, advance as tolerated. 2. Leukocytosis likely due to appendicitis with SIRS. Status post laparoscopic appendectomy. Continue the patient on Zosyn 3.375 g piggyback every 8 hours, continue metronidazole 500 mg IV going every 2 hours, continue current pain management, continue antiemetics, repeat CBC the next 24 hours. 3. Hypertension and hypertensive cardiovascular disease. Continue patient on losartan 50 mg orally once every day, monitor the patient blood pressure very closely. 4. Mixed hyperlipidemia. Continue patient on atorvastatin 20 mg once every day, monitor lipid panel. 5. Enlarged prostate. Monitor for urinary retention continue Flomax 0.4 mg orally once every day. 6. Osteoarthritis. Continue current pain management. 7. DVT prophylaxis. Heparin 5000 units subcutaneous every 8 hours. 8. GI prophylaxis. Continue Protonix 40 mg IV push every 24 hours. 9. Increase activity. 10. Thank you Dr. Rogers for allowing me to persuade in the care of your patient we will follow the patient with you. Past Medical History Past Medical History: Hyperlipidemia, Hypertension History of Any Multi-Drug Resistant Organisms: None Reported Past Surgical History: No Surgical Hx Reported Past Psychological History: No Psychological Hx Reported Smoking Status: Never smoker Past Alcohol Use History: Rare Past Drug Use History: Marijuana Medications and Allergies Home Medications Medication Instructions Recorded Confirmed Type Ashwagandha Root Extract 300 mg PO DAILY 12/16/24 12/16/24 History [Ashwagandha] Atorvastatin [Lipitor] 20 mg PO DAILY 12/16/24 12/16/24 History Cholecalciferol (Vitamin D3) 50 mcg PO DAILY 12/16/24 12/16/24 History [Vitamin D3 (50 Mcg = 2000 Iu)] Losartan [Cozaar] 50 mg PO DAILY 12/16/24 12/16/24 History Magnesium 250 mg PO DAILY 12/16/24 12/16/24 History [place]-3/Dha/Epa/Fish Oil [Fish Oil 1 cap PO DAILY 12/16/24 12/16/24 History 1,000 mg Softgel] Tamsulosin [Flomax] 0.4 mg PO DAILY 12/16/24 12/16/24 History Ubidecarenone [Coenzyme Q10] 100 mg PO DAILY 12/16/24 12/16/24 History Vit C/E/Zn/Coppr/Lutein/Zeaxan 1 cap PO DAILY 12/16/24 12/16/24 History [Preservision Areds 2 Softgel] Allergies Allergy/AdvReac Type Severity Reaction Status Date / Time No Known Allergies Allergy Verified 12/16/24 11:23 Physical Exam Vitals: Vital Signs Temp Pulse Pulse Pulse Resp BP BP 12/16/24 14:41 83 16 129/68 12/16/24 14:26 76 16 127/68 12/16/24 14:11 77 14 134/67 12/16/24 13:56 97.1 F L 83 12 142/81 12/16/24 12:03 97.7 F 84 16 12/16/24 10:27 87 18 149/92 12/16/24 07:23 97.9 F 96 20 147/95 BP Pulse Ox 12/16/24 14:41 92 L 12/16/24 14:26 99 12/16/24 14:11 100 12/16/24 13:56 99 12/16/24 12:03 147/97 98 12/16/24 10:27 98 12/16/24 07:23 96 Intake and Output 12/16/24 12/16/24 12/16/24 06:59 14:59 22:59 Intake Total 850 Output Total 10 Balance 840 Intake: IV 850 Output: Estimated Blood Loss 10 Other: Weight 101.151 kg Results CBC & Chem 7: 12/17/24 06:23 12/17/24 06:23 Labs: Abnormal Lab Results - Last 24 Hours (Table) 12/16/24 12/16/24 12/16/24 Range/Units 07:40 07:40 07:40 WBC 18.0 H (3.8-10.6) k/uL Neutrophils # 15.2 H (1.3-7.7) k/uL Monocytes # 1.1 H (0-1.0) k/uL BUN 22 H (9-20) mg/dL Glucose 122 H (74-99) mg/dL Urine Protein Trace H (Negative) Amorphous Sediment Occasional H (None) /hpf Urine Mucus Rare H (None) /hpf
--- NOTE | 2024-12-17 09:40 | P.PN ---
Subjective Progress Note Date: 12/17/24 HISTORY OF PRESENT ILLNESS: This is a 69-year-old male with a previous medical history significant for hypertension and hypertensive cardiovascular disease, mixed hyperlipidemia, enlarged prostate, history of erectile dysfunction, history of osteoarthritis, patient presented to the emergency department at [facility] because of right lower quadrant abdominal pain that was started 2 days ago and the patient stated that the pain was dull bed and he thought that he is having some issues with constipation, patient's pain got terribly bad to the degree that he ended up coming to the emergency department today because the pain was intolerable, was somewhat nauseated, patient underwent a CT scan of the abdomen pelvis that did show evidence of acute uncomplicated appendicitis, he was admitted under general surgery, he underwent laparoscopic appendectomy, and I was asked to see the patient for postoperative medical management. Patient is laying down in bed in no apparent distress, he denies any chest pain, shortness of breath, his pain is well-controlled, he was started on Zosyn as well as metronidazole, he will be admitted to the hospital for overnight, hopefully will get out of the hospital in the next 24 hours. 12/17: Patient is sitting at the edge of the bed, he continues to have some pain in the lower abdomen, he continues to have distended abdomen, he is mildly nauseated, no vomiting, he is tolerating his clear liquid diet, advised the patient to increase his activity level, continue to use a walker to ambulate to the bathroom, follow-up with the patient very closely, continue IV antibiotics with Zosyn as well as metronidazole, continue current pain management, increase activity, patient was instructed to use incentive spirometer to reduce the incidence of atelectasis and healthcare associated pneumonia REVIEW OF SYSTEMS: Constitutional: No documented fever, no chills, no night sweats. No weight change. No weakness, fatigue or lethargy. No daytime sleepiness. EENT: No headache. No blurred vision or double vision, no loss of vision. No loss of Hearing, no ringing in the ears, no dizziness. No nasal drainage or congestion. No epistaxis. No sore throat. Lungs: No shortness of breath, no cough, no sputum production. No wheezing. Reports dyspnea with activity. Cardiovascular: No chest pain, no lower extremity edema. No palpitations. No paroxysmal nocturnal dyspnea. No orthopnea. No lightheadedness or dizziness. No syncopal episodes. Abdominal: Reports abdominal pain. No nausea, vomiting. No diarrhea. Positive for constipation. No bloody or tarry stools reports loss of appetite. Genitourinary: No dysuria, increased frequency, urgency. No urinary retention. Musculoskeletal: No myalgias. No muscle weakness, no gait dysfunction, no frequent falls. No back pain. No neck pain. Integumentary: No wounds, no lesions. No rash or pruritus. No unusual bruising. No change in hair or nails. Neurologic: No aphasia. No facial droop. No change in mentation. No head injury. No headache. No paralysis. No paresthesia. Psychiatric: No depression. No anxiety. No mood swings. Endocrine: No abnormal blood sugars. No weight change. PHYSICAL EXAMINATION: General: 69-year-old gentleman lying down in bed in no distress. HEENT: Head is atraumatic, normocephalic, pupils were equal round reactive to light and recommendation, extraocular muscle movement were intact, sclera nonicteric, conjunctivae were pale, mucous membranes of the mouth are somewhat dry. Neck: Supple, no JVP, normal carotid upstroke bilaterally, no lymphadenopathy. Chest: Decreased breath sounds at the bases, few rhonchi, no expiratory wheezes, no chest wall tenderness, no intercostal retractions. Heart: First heart sound is normal, second heart sounds normal Abdomen: Soft, mild tenderness to the right lower quadrant,, mildly distended, positive bowel sounds laparoscopic sites appears to be clean, THELMA tube in place. Extremities: There is no edema no calf tenderness DP +2 bilaterally. Neurologic examination: Patient is awake alert and oriented x3, cranial nerves II-12 appear grossly intact, muscle power were 5 out of 5 in upper extremities and 5 out of 5 in bilateral lower extremities, deep tendon reflexes normal bilaterally. ASSESSMENT AND PLAN: 1. Postoperative day #1 status post laparoscopic appendectomy. Patient was instructed to use incentive spirometer to reduce the incidence of atelectasis and healthcare associated pneumonia, continue current pain management as outlined by general surgery, continue IV antibiotic in the form of Zosyn 3.375 g IV piggyback every 8 hours, continue metronidazole 500 mg a piggyback every 8 h ours, patient was started on antiemetics as well as clear liquid diet, advance as tolerated. Increase activity 2. Leukocytosis likely due to appendicitis with SIRS. Status post laparoscopic appendectomy. Continue the patient on Zosyn 3.375 g piggyback every 8 hours, continue metronidazole 500 mg IV going every 2 hours, continue current pain management, continue antiemetics, repeat CBC the next 24 hours. 3. Hypertension and hypertensive cardiovascular disease. Continue patient on losartan 50 mg orally once every day, monitor the patient blood pressure very closely. 4. Mixed hyperlipidemia. Continue patient on atorvastatin 20 mg once every day, monitor lipid panel. 5. Enlarged prostate. Monitor for urinary retention continue Flomax 0.4 mg orally once every day. 6. Osteoarthritis. Continue current pain management. 7. DVT prophylaxis. Heparin 5000 units subcutaneous every 8 hours. 8. GI prophylaxis. Continue Protonix 40 mg IV push every 24 hours. 9. Increase activity. 10. We will continue to follow the patient with you for Objective - Vital Signs Vital signs: Vital Signs Temp 97.7 F 12/17/24 07:33 Pulse 85 12/17/24 07:33 Resp 18 12/17/24 07:33 BP 144/83 12/17/24 07:33 Pulse Ox 93 L 12/17/24 07:33 FiO2 Intake & Output 12/16/24 12/17/24 12/17/24 18:59 06:59 18:59 Intake Total 1590 Output Total 40 110 Balance 1550 -110 Weight 101.151 kg Intake: IV 850 Intake, IV Titration 500 Amount D5-0.45% NaCl with KCl 400 20Meq/l 1,000 ml @ 125 mls/hr IV .Q8H LEONARDO Rx#: [id number] metroNIDAZOLE-NS PMX 500 100 mg In Saline 1 100ml.bag @ 100 mls/hr IVPB Q8HR LEONARDO Rx#:[id number] Oral 240 Output: Drainage 30 110 Medial Abdomen 30 110 Estimated Blood Loss 10 Other: # Voids 1 1 - Labs CBC & Chem 7: 12/17/24 06:23 12/17/24 06:23 Labs: Abnormal Lab Results - Last 24 Hours (Table) 12/17/24 12/17/24 Range/Units 06:23 06:23 WBC 11.2 H (3.8-10.6) k/uL Hgb 12.8 L (13.0-17.5) gm/dL Neutrophils # 8.7 H (1.3-7.7) k/uL Sodium 134 L (137-145) mmol/L Glucose 109 H (74-99) mg/dL Calcium 8.3 L (8.4-10.2) mg/dL Total Protein 5.4 L (6.3-8.2) g/dL Albumin 3.1 L (3.5-5.0) g/dL
--- NOTE | 2024-12-17 10:19 | P.PN ---
Subjective Progress Note Date: 12/17/24 Principal diagnosis: Appendicitis Patient doing better this morning. Says last night he was pretty uncomfortable. Overall his pain is similar to it was preop however better on the right-hand side. THELMA drain is a seropurulent appearance. Incisions are clean and dry. He is afebrile. Mild tachycardia earlier. He has ambulated to the bathroom and back. Labs show an improved white blood cell count of 11. Objective - Vital Signs Vital signs: Vital Signs Temp 97.7 F 12/17/24 07:33 Pulse 85 12/17/24 07:33 Resp 18 12/17/24 07:33 BP 144/83 12/17/24 07:33 Pulse Ox 93 L 12/17/24 07:33 FiO2 Intake & Output 12/16/24 12/17/24 12/17/24 18:59 06:59 18:59 Intake Total 1590 Output Total 40 110 Balance 1550 -110 Weight 101.151 kg Intake: IV 850 Intake, IV Titration 500 Amount D5-0.45% NaCl with KCl 400 20Meq/l 1,000 ml @ 125 mls/hr IV .Q8H LEONARDO Rx#: [id number] metroNIDAZOLE-NS PMX 500 100 mg In Saline 1 100ml.bag @ 100 mls/hr IVPB Q8HR LEONARDO Rx#:[id number] Oral 240 Output: Drainage 30 110 Medial Abdomen 30 110 Estimated Blood Loss 10 Other: # Voids 1 1 - Exam Abdomen: Soft, distended, mild diffuse tenderness, incisions clean and dry - Labs CBC & Chem 7: 12/17/24 06:23 12/17/24 06:23 Labs: Abnormal Lab Results - Last 24 Hours (Table) 12/17/24 12/17/24 Range/Units 06:23 06:23 WBC 11.2 H (3.8-10.6) k/uL Hgb 12.8 L (13.0-17.5) gm/dL Neutrophils # 8.7 H (1.3-7.7) k/uL Sodium 134 L (137-145) mmol/L Glucose 109 H (74-99) mg/dL Calcium 8.3 L (8.4-10.2) mg/dL Total Protein 5.4 L (6.3-8.2) g/dL Albumin 3.1 L (3.5-5.0) g/dL Assessment and Plan (1) Acute appendicitis Narrative/Plan: 69-year-old male with ruptured gangrenous appendicitis. Patient seems to be doing about as expected given the intraoperative findings. Continue increasing activity. Continue antibiotics. Recheck labs tomorrow. Continue clear liquids for this morning. May advance to full liquids if tolerates. Current Visit: Yes Status: Acute Code(s): K35.80 - UNSPECIFIED ACUTE APPENDICITIS SNOMED Code(s): 69820310
[2024-12-18 09:50] LABS: Basophils # (A) 0.04 X 10*3/uL (0.00-0.10); Basophils % (A) 0.4 %; Eosinophils # (A) 0.19 X 10*3/uL (0.04-0.35); Eosinophils % (A) 1.9 %; HCT 37.9 % (39.6-50.0); HGB 12.1 g/dL (13.0-17.0); Lymphocytes # (A) 0.85 X 10*3/uL (0.90-5.00); Lymphocytes % (A) 8.4 %; MCH 28.4 pg (27.0-32.0); MCHC 31.9 g/dL (32.0-37.0); Mean Platelet Volume 11.1 FL (9.5-12.2); Monocytes # (A) 1.23 X 10*3/uL (0.20-1.00); Monocytes % (A) 12.2 %; NRBC Per 100 WBC 0 X 10*3/uL (0.00-0.01); Neutrophils # (A) 7.78 X 10*3/uL (1.80-7.70); Neutrophils % (A) 76.8 %; Platelet Count 189 X 10*3/uL (140-440); RBC 4.26 X 10*6/uL (4.40-5.60); RDW 12.8 % (11.5-14.5); WBC 10.12 X 10*3/uL (4.50-10.00)
[2024-12-18 09:59] LABS: BUN/Creat Ratio 11.36 Ratio (12.00-20.00); Blood Urea Nitrogen 12.5 mg/dL (9.0-27.0); Carbon Dioxide 25.8 mmol/L (21.6-31.8); Chloride 105 mmol/L (96-109); Glucose 129 mg/dL (70-110); Potassium 3.9 mmol/L (3.5-5.5); Sodium 140 mmol/L (135-145)
--- NOTE | 2024-12-18 10:16 | P.PN ---
Subjective Progress Note Date: 12/18/24 Principal diagnosis: Appendicitis Overall patient seems to be doing better today. His pain is less. Is mostly incisional at this time. He did not sleep at all last night. He is passing flatus. No bowel movement. Tolerating liquid diet. No nausea. Would like to try regular food. Would like to shower. THELMA is more serous today. Objective - Vital Signs Vital signs: Vital Signs Temp 98.3 F 12/18/24 06:57 Pulse 87 12/18/24 06:57 Resp 16 12/18/24 06:57 BP 160/95 12/18/24 06:57 Pulse Ox 93 L 12/18/24 06:57 FiO2 Intake & Output 12/17/24 12/18/24 12/18/24 18:59 06:59 18:59 Output Total 245 104 30 Balance -245 -104 -30 Output: Drainage 245 100 30 Medial Abdomen 245 100 30 Urine 4 Other: # Voids 2 - Exam Abdomen: Soft, slightly less tender, less distended, incisions clean and dry, THELMA serous - Labs CBC & Chem 7: 12/18/24 04:07 12/18/24 04:07 Labs: Abnormal Lab Results - Last 24 Hours (Table) 12/18/24 12/18/24 Range/Units 04:07 04:07 WBC 10.12 H (4.50-10.00) X 10*3/uL RBC 4.26 L (4.40-5.60) X 10*6/uL Hgb 12.1 L (13.0-17.0) g/dL Hct 37.9 L (39.6-50.0) % MCHC 31.9 L (32.0-37.0) g/dL Neutrophils # 7.78 H (1.80-7.70) X 10*3/uL Lymphocytes # 0.85 L (0.90-5.00) X 10*3/uL Monocytes # 1.23 H (0.20-1.00) X 10*3/uL BUN/Creatinine Ratio 11.36 L (12.00-20.00) Ratio Glucose 129 H (70-110) mg/dL Calcium 8.0 L (8.7-10.3) mg/dL Microbiology - Last 24 Hours (Table) 12/16/24 11:30 Blood Culture - Preliminary Blood Assessment and Plan (1) Acute appendicitis Narrative/Plan: Patient seem to be doing better. Will advance to regular diet. Possible discharge later today or tomorrow morning if tolerating diet. Continue antibiotics for now. Prescription sent. Current Visit: Yes Status: Acute Code(s): K35.80 - UNSPECIFIED ACUTE APPENDICITIS SNOMED Code(s): 66149028
--- NOTE | 2024-12-18 14:38 | P.PN ---
Subjective Progress Note Date: 12/18/24 HISTORY OF PRESENT ILLNESS: This is a 69-year-old male with a previous medical history significant for hypertension and hypertensive cardiovascular disease, mixed hyperlipidemia, enlarged prostate, history of erectile dysfunction, history of osteoarthritis, patient presented to the emergency department at [facility] because of right lower quadrant abdominal pain that was started 2 days ago and the patient stated that the pain was dull bed and he thought that he is having some issues with constipation, patient's pain got terribly bad to the degree that he ended up coming to the emergency department today because the pain was intolerable, was somewhat nauseated, patient underwent a CT scan of the abdomen pelvis that did show evidence of acute uncomplicated appendicitis, he was admitted under general surgery, he underwent laparoscopic appendectomy, and I was asked to see the patient for postoperative medical management. Patient is laying down in bed in no apparent distress, he denies any chest pain, shortness of breath, his pain is well-controlled, he was started on Zosyn as well as metronidazole, he will be admitted to the hospital for overnight, hopefully will get out of the hospital in the next 24 hours. 12/17: Patient is sitting at the edge of the bed, he continues to have some pain in the lower abdomen, he continues to have distended abdomen, he is mildly nauseated, no vomiting, he is tolerating his clear liquid diet, advised the patient to increase his activity level, continue to use a walker to ambulate to the bathroom, follow-up with the patient very closely, continue IV antibiotics with Zosyn as well as metronidazole, continue current pain management, increase activity, patient was instructed to use incentive spirometer to reduce the incidence of atelectasis and healthcare associated pneumonia 12/18: Patient sitting up in a chair in no apparent distress, he is moving around using his IV pole, his pain is much better today, he has no fever or chills at this time, he is using incentive spirometer, he continues to have the THELMA tube in place, he is probably will be discharged home in the next 24 hours, he has not had a bowel movement, he is passing gas, he is not nauseated, he is tolerating his regular diet very well. REVIEW OF SYSTEMS: Constitutional: No documented fever, no chills, no night sweats. No weight change. No weakness, fatigue or lethargy. No daytime sleepiness. EENT: No headache. No blurred vision or double vision, no loss of vision. No loss of Hearing, no ringing in the ears, no dizziness. No nasal drainage or congestion. No epistaxis. No sore throat. Lungs: No shortness of breath, no cough, no sputum production. No wheezing. Reports dyspnea with activity. Cardiovascular: No chest pain, no lower extremity edema. No palpitations. No paroxysmal nocturnal dyspnea. No orthopnea. No lightheadedness or dizziness. No syncopal episodes. Abdominal: Reports abdominal pain. No nausea, vomiting. No diarrhea. Positive for constipation. No bloody or tarry stools reports loss of appetite. Genitourinary: No dysuria, increased frequency, urgency. No urinary retention. Musculoskeletal: No myalgias. No muscle weakness, no gait dysfunction, no frequent falls. No back pain. No neck pain. Integumentary: No wounds, no lesions. No rash or pruritus. No unusual bruising. No change in hair or nails. Neurologic: No aphasia. No facial droop. No change in mentation. No head injury. No headache. No paralysis. No paresthesia. Psychiatric: No depression. No anxiety. No mood swings. Endocrine: No abnormal blood sugars. No weight change. PHYSICAL EXAMINATION: General: 69-year-old gentleman lying down in bed in no distress. HEENT: Head is atraumatic, normocephalic, pupils were equal round reactive to light and recommendation, extraocular muscle movement were intact, sclera nonicteric, conjunctivae were pale, mucous membranes of the mouth are somewhat dry. Neck: Supple, no JVP, normal carotid upstroke bilaterally, no lymphadenopathy. Chest: Decreased breath sounds at the bases, few rhonchi, no expiratory wheezes, no chest wall tenderness, no intercostal retractions. Heart: First heart sound is normal, second heart sounds normal Abdomen: Soft, mild tenderness to the right lower quadrant,, mildly distended, positive bowel sounds laparoscopic sites appears to be clean, THELMA tube in place. Extremities: There is no edema no calf tenderness DP +2 bilaterally. Neurologic examination: Patient is awake alert and oriented x3, cranial nerves II-12 appear grossly intact, muscle power were 5 out of 5 in upper extremities and 5 out of 5 in bilateral lower extremities, deep tendon reflexes normal bilaterally. ASSESSMENT AND PLAN: 1. Postoperative day # 2 status post laparoscopic appendectomy. Patient was instructed to use incentive spirometer to reduce the incidence of atelectasis and healthcare associated pneumonia, continue current pain management as outlined by general surgery, continue IV antibiotic in the form of Zosyn 3.375 g IV piggyback every 8 hours, continue metronidazole 500 mg a piggyback every 8 hours, continue to increase activity, diet is at regular diet. 2. Leukocytosis likely due to appendicitis with SIRS. Status post laparoscopic appendectomy. Continue the patient on Zosyn 3.375 g piggyback every 8 hours, continue metronidazole 500 mg IV going every 2 hours, continue current pain management, continue antiemetics, repeat CBC the next 24 hours. 3. Hypertension and hypertensive cardiovascular disease. Continue patient on losartan 50 mg orally once every day, monitor the patient blood pressure very closely. 4. Mixed hyperlipidemia. Continue patient on atorvastatin 20 mg once every day, monitor lipid panel. 5. Enlarged prostate. Monitor for urinary retention continue Flomax 0.4 mg orally once every day. 6. Osteoarthritis. Continue current pain management. 7. DVT prophylaxis. Heparin 5000 units subcutaneous every 8 hours. 8. GI prophylaxis. Continue Protonix 40 mg IV push every 24 hours. 9. Increase activity. 10. Patient is medically stable for discharge Objective - Vital Signs Vital signs: Vital Signs Temp 98.3 F 12/18/24 06:57 Pulse 87 12/18/24 06:57 Resp 16 12/18/24 06:57 BP 160/95 12/18/24 06:57 Pulse Ox 93 L 12/18/24 06:57 FiO2 Intake & Output 12/17/24 12/18/24 12/18/24 18:59 06:59 18:59 Output Total 245 104 30 Balance -245 -104 -30 Output: Drainage 245 100 30 Medial Abdomen 245 100 30 Urine 4 Other: # Voids 2 - Labs CBC & Chem 7: 12/18/24 04:07 12/18/24 04:07 Labs: Abnormal Lab Results - Last 24 Hours (Table) 12/18/24 12/18/24 Range/Units 04:07 04:07 WBC 10.12 H (4.50-10.00) X 10*3/uL RBC 4.26 L (4.40-5.60) X 10*6/uL Hgb 12.1 L (13.0-17.0) g/dL Hct 37.9 L (39.6-50.0) % MCHC 31.9 L (32.0-37.0) g/dL Neutrophils # 7.78 H (1.80-7.70) X 10*3/uL Lymphocytes # 0.85 L (0.90-5.00) X 10*3/uL Monocytes # 1.23 H (0.20-1.00) X 10*3/uL BUN/Creatinine Ratio 11.36 L (12.00-20.00) Ratio Glucose 129 H (70-110) mg/dL Calcium 8.0 L (8.7-10.3) mg/dL Microbiology - Last 24 Hours (Table) 12/16/24 11:30 Blood Culture - Preliminary Blood
[2024-12-19 09:17] LABS: ALT 12 U/L (10-49); AST 20 U/L (14-35); Albumin 3.1 g/dL (3.8-4.9); Albumin/Globulin Ratio 1.72 Ratio (1.60-3.17); Alkaline Phosphatase 65 U/L (41-126); Blood Urea Nitrogen 13.1 mg/dL (9.0-27.0); Calcium 8.1 mg/dL (8.7-10.3); Carbon Dioxide 24.7 mmol/L (21.6-31.8); Chloride 104 mmol/L (96-109); Globulin 1.8 g/dL (1.6-3.3); Glucose 113 mg/dL (70-110); Potassium 3.7 mmol/L (3.5-5.5); Sodium 137 mmol/L (135-145); Total Bilirubin 0.5 mg/dL (0.3-1.2); Total Protein 4.9 g/dL (6.2-8.2)
--- NOTE | 2024-12-19 09:44 | P.PN ---
Subjective Progress Note Date: 12/19/24 HISTORY OF PRESENT ILLNESS: This is a 69-year-old male with a previous medical history significant for hypertension and hypertensive cardiovascular disease, mixed hyperlipidemia, enlarged prostate, history of erectile dysfunction, history of osteoarthritis, patient presented to the emergency department at [facility] because of right lower quadrant abdominal pain that was started 2 days ago and the patient stated that the pain was dull bed and he thought that he is having some issues with constipation, patient's pain got terribly bad to the degree that he ended up coming to the emergency department today because the pain was intolerable, was somewhat nauseated, patient underwent a CT scan of the abdomen pelvis that did show evidence of acute uncomplicated appendicitis, he was admitted under general surgery, he underwent laparoscopic appendectomy, and I was asked to see the patient for postoperative medical management. Patient is laying down in bed in no apparent distress, he denies any chest pain, shortness of breath, his pain is well-controlled, he was started on Zosyn as well as metronidazole, he will be admitted to the hospital for overnight, hopefully will get out of the hospital in the next 24 hours. 12/17: Patient is sitting at the edge of the bed, he continues to have some pain in the lower abdomen, he continues to have distended abdomen, he is mildly nauseated, no vomiting, he is tolerating his clear liquid diet, advised the patient to increase his activity level, continue to use a walker to ambulate to the bathroom, follow-up with the patient very closely, continue IV antibiotics with Zosyn as well as metronidazole, continue current pain management, increase activity, patient was instructed to use incentive spirometer to reduce the incidence of atelectasis and healthcare associated pneumonia 12/18: Patient sitting up in a chair in no apparent distress, he is moving around using his IV pole, his pain is much better today, he has no fever or chills at this time, he is using incentive spirometer, he continues to have the THELMA tube in place, he is probably will be discharged home in the next 24 hours, he has not had a bowel movement, he is passing gas, he is not nauseated, he is tolerating his regular diet very well. 12/19: Patient sitting up in a chair in no apparent distress, he is ambulating very well, has not had a bowel movement yet, increase his activity, and continue current regular diet, discontinue IV fluid at this point in time, patient can be discharged home later on today if he has a bowel movement. REVIEW OF SYSTEMS: Constitutional: No documented fever, no chills, no night sweats. No weight change. No weakness, fatigue or lethargy. No daytime sleepiness. EENT: No headache. No blurred vision or double vision, no loss of vision. No loss of Hearing, no ringing in the ears, no dizziness. No nasal drainage or congestion. No epistaxis. No sore throat. Lungs: No shortness of breath, no cough, no sputum production. No wheezing. Reports dyspnea with activity. Cardiovascular: No chest pain, no lower extremity edema. No palpitations. No paroxysmal nocturnal dyspnea. No orthopnea. No lightheadedness or dizziness. No syncopal episodes. Abdominal: Reports abdominal pain. No nausea, vomiting. No diarrhea. Positive for constipation. No bloody or tarry stools reports loss of appetite. Genitourinary: No dysuria, increased frequency, urgency. No urinary retention. Musculoskeletal: No myalgias. No muscle weakness, no gait dysfunction, no frequent falls. No back pain. No neck pain. Integumentary: No wounds, no lesions. No rash or pruritus. No unusual bruising. No change in hair or nails. Neurologic: No aphasia. No facial droop. No change in mentation. No head injury. No headache. No paralysis. No paresthesia. Psychiatric: No depression. No anxiety. No mood swings. Endocrine: No abnormal blood sugars. No weight change. PHYSICAL EXAMINATION: General: 69-year-old gentleman lying down in bed in no distress. HEENT: Head is atraumatic, normocephalic, pupils were equal round reactive to light and recommendation, extraocular muscle movement were intact, sclera nonicteric, conjunctivae were pale, mucous membranes of the mouth are somewhat dry. Neck: Supple, no JVP, normal carotid upstroke bilaterally, no lymphadenopathy. Chest: Decreased breath sounds at the bases, few rhonchi, no expiratory wheezes, no chest wall tenderness, no intercostal retractions. Heart: First heart sound is normal, second heart sounds normal Abdomen: Soft, mild tenderness to the right lower quadrant,, mildly distended, positive bowel sounds laparoscopic sites appears to be clean, THELMA tube in place. Extremities: There is no edema no calf tenderness DP +2 bilaterally. Neurologic examination: Patient is awake alert and oriented x3, cranial nerves II-12 appear grossly intact, muscle power were 5 out of 5 in upper extremities and 5 out of 5 in bilateral lower extremities, deep tendon reflexes normal bilaterally. ASSESSMENT AND PLAN: 1. Postoperative day # 4 status post laparoscopic appendectomy. Patient was instructed to use incentive spirometer to reduce the incidence of atelectasis and healthcare associated pneumonia, continue current pain management as outlined by general surgery, continue IV antibiotic in the form of Zosyn 3.375 g IV piggyback every 8 hours, continue metronidazole 500 mg a piggyback every 8 hours, continue to increase activity, diet is at regular diet. 2. Leukocytosis likely due to appendicitis with SIRS. Status post laparoscopic appendectomy. Continue the patient on Zosyn 3.375 g piggyback every 8 hours, continue metronidazole 500 mg IV going every 2 hours, continue current pain management, continue antiemetics, repeat CBC the next 24 hours. 3. Hypertension and hypertensive cardiovascular disease. Continue patient on losartan 50 mg orally once every day, monitor the patient blood pressure very closely. 4. Mixed hyperlipidemia. Continue patient on atorvastatin 20 mg once every day, monitor lipid panel. 5. Enlarged prostate. Monitor for urinary retention continue Flomax 0.4 mg orally once every day. 6. Osteoarthritis. Continue current pain management. 7. DVT prophylaxis. Heparin 5000 units subcutaneous every 8 hours. 8. GI prophylaxis. Continue Protonix 40 mg IV push every 24 hours. 9. Increase activity. 10. Patient is medically stable for discharge Objective - Vital Signs Vital signs: Vital Signs Temp 98.5 F 12/19/24 01:52 Pulse 75 12/19/24 01:52 Resp 17 12/19/24 01:52 BP 156/93 12/19/24 01:52 Pulse Ox 94 L 12/19/24 01:52 FiO2 Intake & Output 12/18/24 12/19/24 12/19/24 18:59 06:59 18:59 Output Total 30 Balance -30 Output: Drainage 30 Medial Abdomen 30 Other: # Voids 3 3 - Labs CBC & Chem 7: 12/18/24 04:07 12/19/24 03:00 Labs: Abnormal Lab Results - Last 24 Hours (Table) 03/30/25 03/30/25 Range/Units 04:07 04:07 WBC 10.12 H (4.50-10.00) X 10*3/uL RBC 4.26 L (4.40-5.60) X 10*6/uL Hgb 12.1 L (13.0-17.0) g/dL Hct 37.9 L (39.6-50.0) % MCHC 31.9 L (32.0-37.0) g/dL Neutrophils # 7.78 H (1.80-7.70) X 10*3/uL Lymphocytes # 0.85 L (0.90-5.00) X 10*3/uL Monocytes # 1.23 H (0.20-1.00) X 10*3/uL BUN/Creatinine Ratio 11.36 L (12.00-20.00) Ratio Glucose 129 H (70-110) mg/dL Calcium 8.0 L (8.7-10.3) mg/dL Microbiology - Last 24 Hours (Table) 12/16/24 11:30 Blood Culture - Preliminary Blood
[2024-12-19 09:50] LABS: Basophils # (A) 0.03 X 10*3/uL (0.00-0.10); Basophils % (A) 0.4 %; Eosinophils # (A) 0.32 X 10*3/uL (0.04-0.35); Eosinophils % (A) 4.2 %; HGB 11.8 g/dL (13.0-17.0); Lymphocytes # (A) 0.97 X 10*3/uL (0.90-5.00); Lymphocytes % (A) 12.7 %; MCH 28.2 pg (27.0-32.0); MCHC 31.9 g/dL (32.0-37.0); MCV 88.5 FL (80.0-97.0); Mean Platelet Volume 11.4 FL (9.5-12.2); Monocytes # (A) 1.09 X 10*3/uL (0.20-1.00); Monocytes % (A) 14.2 %; NRBC Per 100 WBC 0 X 10*3/uL (0.00-0.01); Neutrophils # (A) 5.21 X 10*3/uL (1.80-7.70); Neutrophils % (A) 68.1 %; Platelet Count 210 X 10*3/uL (140-440); RBC 4.18 X 10*6/uL (4.40-5.60); RDW 12.9 % (11.5-14.5); WBC 7.65 X 10*3/uL (4.50-10.00)
[2024-12-19 10:02] VITALS: BP 148/88; PULSE 83; RESP 18; TEMP 99.2
--- NOTE | 2024-12-19 10:46 | P.DS ---
Providers Date of admission: 12/16/24 10:50 Expected date of discharge: 12/19/24 Attending physician: Bora Rogers Consults: 12/16/24 14:08 Consult Physician Routine Consulting Provider: Augustin Sandoval Consult Reason/Comments: Medical management Do you want consulting provider notified?: Yes Primary care physician: Augustin Sandoval Hospital Course: Discharge diagnosis 1. Acute gangrenous ruptured appendicitis with localized peritonitis Hospital course This is a 69-year-old male who presented to the hospital with right lower quadrant abdominal pain. CAT scan had reported acute appendicitis with appendicolith. Degree of inflammatory changes fairly impressive with likely some fluid around the appendix suggesting rupture is possible. Patient is status post laparoscopic appendectomy. Tolerated surgery well. His pain is controlled. He is tolerating diet. He has been up and ambulating. He is having flatus. He is afebrile. White count has normalized. He is stable for discharge. Please return for any further details. Physician Equip Maint Eng note has been reviewed by physician. Signing provider agrees with the documented findings, assessment, and plan of care. Patient Condition at Discharge: Stable Plan - Discharge Summary Discharge Rx Participant: No New Discharge Prescriptions: New Amoxic-Pot Clav 875-125Mg [Augmentin 875-125] 1 tab PO BID 7 Days #14 tab Docusate [Colace] 100 mg PO BID #30 capsule oxyCODONE HCL [OxyIR] 5 mg PO Q6H PRN 3 Days #6 tab PRN Reason: Breakthrough Pain Continue Magnesium 250 mg PO DAILY Vit C/E/Zn/Coppr/Lutein/Zeaxan [Preservision Areds 2 Softgel] 1 cap PO DAILY Cholecalciferol (Vitamin D3) [Vitamin D3 (50 Mcg = 2000 Iu)] 50 mcg PO DAILY Ashwagandha Root Extract [Ashwagandha] 300 mg PO DAILY Tamsulosin [Flomax] 0.4 mg PO DAILY Ubidecarenone [Coenzyme Q10] 100 mg PO DAILY [place]-3/Dha/Epa/Fish Oil [Fish Oil 1,000 mg Softgel] 1 cap PO DAILY Losartan [Cozaar] 50 mg PO DAILY Atorvastatin [Lipitor] 20 mg PO DAILY Discharge Medication List Ashwagandha Root Extract [Ashwagandha] 300 mg PO DAILY 12/16/24 [History] Atorvastatin [Lipitor] 20 mg PO DAILY 12/16/24 [History] Cholecalciferol (Vitamin D3) [Vitamin D3 (50 Mcg = 2000 Iu)] 50 mcg PO DAILY 12/16/24 [History] Losartan [Cozaar] 50 mg PO DAILY 12/16/24 [History] Magnesium 250 mg PO DAILY 12/16/24 [History] [place]-3/Dha/Epa/Fish Oil [Fish Oil 1,000 mg Softgel] 1 cap PO DAILY 12/16/24 [History] Tamsulosin [Flomax] 0.4 mg PO DAILY 12/16/24 [History] Ubidecarenone [Coenzyme Q10] 100 mg PO DAILY 12/16/24 [History] Vit C/E/Zn/Coppr/Lutein/Zeaxan [Preservision Areds 2 Softgel] 1 cap PO DAILY 12/16/24 [History] Amoxic-Pot Clav 875-125Mg [Augmentin 875-125] 1 tab PO BID 7 Days #14 tab 12/18/24 [Rx] oxyCODONE HCL [OxyIR] 5 mg PO Q6H PRN 3 Days #6 tab 12/18/24 [Rx] Docusate [Colace] 100 mg PO BID #30 capsule 12/19/24 [Rx] Follow up Appointment(s)/Referral(s): Bora Rogers MD [Medical Doctor] - 12/22/24 Augustin Sandoval MD [Primary Care Provider] - 1-2 days Activity/Diet/Wound Care/Special Instructions: No driving while taking OxyIR No lifting over 10 pounds You may shower. No soaking or tub baths for 2 weeks Very light activity until you are reevaluated at your follow up appointment with your surgeon Keep a log of THELMA drain output and bring with you to your follow-up appointment Milk/strip drains 2-3 times a day Discharge Disposition: HOME SELF-CARE
[2024-12-19] MEDS: DOCUSATE 100 MG CAP PO SCH (12:43)
== END 2024-12-19 13:30 | disposition home or self-care (01) | DRG 398 ==
LOC: EC 07:18 → OBSVTOIN 10:50 → 4SSUR 10:50
PROVIDERS: ADMIT Surgery; ATTEND Surgery
PROC: 0DTJ4ZZ Resection of Appendix, Percutaneous Endoscopic Approach (ICD-10-PCS; principal; 2024-12-16 09:00)
DX: K35.32 Acute appendicitis with perforation, localized peritonitis, and gangrene, without abscess (principal); R65.10 Systemic inflammatory response syndrome (SIRS) of non-infectious origin without acute organ dysfunction; E78.2 Mixed hyperlipidemia; I11.9 Hypertensive heart disease without heart failure; N40.0 Benign prostatic hyperplasia without lower urinary tract symptoms; M19.90 Unspecified osteoarthritis, unspecified site; Z79.899 Other long term (current) drug therapy; K59.00 Constipation, unspecified; K38.1 Appendicular concretions
CPT/HCPCS: 36415; 74177; 80048; 80053; 81001; 82150; 83605; 83690; 85025; 87040; 88304; 96361; 96365; 96375; 99285

== ENCOUNTER → 2025-01-13 | Outpatient (CLI) | payer MEDICARE ==
[2025-01-13 11:27] LABS: African American GFR (CKD) >90 (>60 ml/min/1.73 sqM); Blood Urea Nitrogen 24 mg/dL (9-20); Non-African American GFR(CKD) 89 (>60 ml/min/1.73 sqM)
--- NOTE | 2025-01-13 15:46 | CT ---
EXAMINATION TYPE: CT abdomen pelvis w con CT DLP: 1688.90 mGycm, Automated exposure control for dose reduction was used. DATE OF EXAM: 01/13/2025 12:59 PM COMPARISON: CT abdomen pelvis 12/16/2024, CT urogram 11/06/2023, 11/07/2021 CLINICAL INDICATION:Male, 69 years old with history of K37 appendicitis; APPY X3 WEEKS AGO TECHNIQUE: Standard CT of the abdomen and pelvis following the administration of 100 cc of Isovue 3 00 IV contrast material and oral contrast. Coronal and sagittal reformats were performed. FINDINGS: LOWER CHEST: Elevation of the left hemidiaphragm. Minimal right lower lobe subsegmental linear atelec tasis. ABDOMEN LIVER: Left hepatic lobe 2.7 cm cyst with additional stable few subcentimeter hypodense foci which ar e too small catheter is well likely represent cysts. GALLBLADDER AND BILE DUCTS: Unremarkable. PANCREAS: Unremarkable. SPLEEN: Unremarkable. ADRENAL GLANDS: Unremarkable. KIDNEYS AND URETERS: No evidence of hydronephrosis or renal calculus. The kidneys enhance symmetrical ly. Contrast is demonstrated within both collecting systems and proximal ureters on the delayed phase . PELVIS BLADDER: Incompletely distended but grossly unremarkable. REPRODUCTIVE: Coarse calcifications of the prostate gland are identified. Enlarged prostate gland roc sures 6.0 cm in transverse dimension. ABDOMEN & PELVIS STOMACH AND BOWEL: Stomach and duodenum are unremarkable. Enteric contrast reaches the descending col on. Mild amount stool is present within the distal colon. Surgical changes from appendectomy. There i s circumferential wall thickening of the terminal ileum. No evidence for abscess. There is some trace improved stranding within the right lower quadrant. No pneumatosis. No evidence of bowel obstruction . PERITONEUM: No evidence of pneumoperitoneum or free fluid. VASCULATURE: No evidence of aortic aneurysm. MUSCULOSKELETAL: No acute osseous abnormalities LYMPH NODES: No evidence for lymphadenopathy. SOFT TISSUE/ABDOMINAL WALL: Stranding changes within the left anterior mid to lower abdominal wall li barbara related to recent surgery. IMPRESSION: Postsurgical changes from appendectomy without evidence for abscess however there is circumferential wall thickening of the terminal ileum consistent with terminal ileitis. This is likely from an infect ious/inflammatory process. [facility], , 01/13/2025 3:43 PM
== END | disposition home or self-care (01) ==
LOC: RADCTMAIN 10:30
PROVIDERS: ATTEND Surgery
DX: K37 Unspecified appendicitis (principal); Z98.890 Other specified postprocedural states
CPT/HCPCS: 82565; 84520; 74177; 36415; Q9967